=== PATIENT | male | born 1955 | race Caucasian/White ===

== ENCOUNTER 2019-03-02 17:54 | Emergency (ER) | payer OTHER, SELFPAY ==
[2019-03-02 17:55] VITALS: BP 147/94; PULSE 85; RESP 15; TEMP 36.6; O2SAT 96; BMI 30.1
[2019-03-02 18:15] VITALS: RESP 16
--- NOTE | 2019-03-02 18:18 | ED.VISSUMM ---
- ER Visit Summary Date of Service: 03/02/19 Chief Complaint: Abdominal pain History of Present Illness: The patient is a 63 M who presents the emergency department abdominal pain. Symptoms began on Wednesday and were fairly severe that day into Wednesday. He states that a little bit better today. He notes some decreased p.o. intake. He saw his PCP on Wednesday and yesterday had an outpatient CT. He states that he was called today and was told that he has pancreatitis and not to eat anything but to come to the emergency department. He denies any fevers. He states that looking back he notes some intermittent pains very similar to this over the past several months. He denies prior cholecystectomy or history of pancreatitis. He states that he very rarely has alcohol over the past several years. No fevers. No vomiting but nausea. He notes constipation. I was able to review the CT scan read. There is a possible pseudocyst. There is a lung nodule and changes consistent with pancreatitis. There was no noted gallstones or pericholecystic fluid. Physical Examination: Afebrile vital signs are stable Gen: Well-nourished well-developed Head: Normocephalic atraumatic Eyes: Perrl EOMI ENT: TMs clear no rhinorrhea moist mucous membranes Neck: Supple no lymphadenopathy no JVD nontender CVS: Regular rate rhythm no murmurs normal S1-S2 Respiratory: No distress clear to auscultation bilaterally chest nontender Abdomen: Soft mild tenderness to palpation in the epigastrium nondistended normal bowel sounds no masses Back: Nontender Extremity: Nontender no edema Skin: Normal color no rash Neuro: alert orientated ?3 CN II-XII intact normal strength sensation reflexes gait cerebellar Psych: Normal affect normal mood Test Results: White count 9. Lipase 592. Liver enzymes normal. Glucose 284. Emergency Department Course and Treatment: I was able to review the CT scan. Overall the patient feels better today than he has at any point this week. Think most likely given the patient states that he always has a degree of pain but it comes to be worse periodically that he has acute on chronic pancreatitis. Think is reasonable to discharge him home tonight as he is doing better and able to tolerate fluids. He declined morphine and Zofran here. He did receive a liter of fluids. I discussed with him about keeping to a liquid diet today and tomorrow. He states that he due to insurance reasons is interested in finding a new doctor. He states that he has been having to pay [facility] for his care as his insurance is not accepted at the clinic. Patient understands that he will need further work-up on this. If he was advised that there was a pulmonary nodule seen on his CT as well as the pancreatitis. Impression: 1. Acute on chronic pancreatitis This note was generated with [employer] dictation software. It may contain incorrect words, spelling, and punctuation that were not noted in review of the chart prior to signing ED Disposition - Plan for ED Patient: Disposition: Home or Assisted Living Instructions: Understanding Pancreatitis, PULMONARY NODULE, Solitary Referrals: Rigo Bergman MD [STAFF PHYSICIAN] - (call if you want to establish care)
[2019-03-02] MEDS: 0.9% Normal Saline 1,000 ML 1000 ML IV (18:38)
[2019-03-02 18:54] LABS: Absolute Lymphocyte Count 3.33 X10^3/uL (0.83-4.51); Absolute Neutrophil Count 5.6 X10^3/uL (2.0-7.7); Basophil# 0.05 X10^3/uL; Basophil% 0.5 % (0-1); Hematocrit 48.5 % (40-54); Hemoglobin 17.1 g/dL (13.0-16.5); Lymphocyte # 3.33 X10^3/ul (4.0); Lymphocyte % 33.7 % (19-41); Mean Corp Hgb Conc 35.3 g/dL (32-36); Mean Corpuscular Hgb 28.1 pg (27.0-32.0); Mean Corpuscular Volume 79.8 fL (80-94); Mean Platelet Vol. 10.1 fl (6.2-12.0); Monocyte# 0.76 X10^3/uL; Monocyte% 7.7 % (0-10); NRBC Flagged by Analyzer 0 % (0-5); Neutrophil # 5.57 X10^3/uL (2.7-7.7); Neutrophil % 56.5 % (47-70); Platelet Count 254 K/mm3 (150-450); RBC Distribution Width CV 12.3 % (11.6-14.6); RBC Distribution Width SD 34.8 fl (35.1-43.9); Red Blood Count 6.08 M/mm3 (4.6-6.2); White Blood Count 9.9 K/mm3 (4.4-11.0)
[2019-03-02 19:07] LABS: AST(SGOT) 13 U/L (15-37); Alanine Aminotransfer ALT/SGPT 30 U/L (16-61); Alkaline Phosphatase 91 U/L (45-117); Anion Gap 11 (5-15); BUN 22 mg/dL (7-18); BUN/Creat Ratio 20.4 RATIO (10-20); Bilirubin, Direct 0.19 mg/dL (0.00-0.30); Calcium,Total 9.4 mg/dL (8.5-10.1); Chloride 97 mmol/L (98-107); Creatinine, Serum 1.08 mg/dL (0.70-1.30); EST Glomerular Filtration Rate 74 mL/min (>60); Est Glom Filt Rate - Afr Amer 89 mL/min (>60); Estimated Creatinine Clearance 74.16 ml/min; Glucose 284 mg/dL (74-106); Lipase 592 U/L (73-393); Potassium 3.6 mmol/L (3.5-5.1); Sodium Level 135 mmol/L (136-145)
[2019-03-02 19:40] VITALS: BP 155/105; PULSE 88; RESP 16; O2SAT 96
== END 2019-03-02 19:41 | disposition home or self-care (01) ==
PROVIDERS: Emergency Provider Emergency Medicine; Family Provider Family Medicine; PCP Family Medicine
DX: K86.1 Other chronic pancreatitis (principal); K85.90 Acute pancreatitis without necrosis or infection, unspecified; K59.00 Constipation, unspecified; R91.1 Solitary pulmonary nodule
CPT/HCPCS: 80048; 80076; 83690; 85025; 96361; 96374; 96375; 99283; J7030; J2405

== ENCOUNTER → 2019-03-15 07:51 | Outpatient (CLI) | payer OTHER, SELFPAY ==
[2019-03-07 08:17] VITALS: BMI 29.5
[2019-03-07 12:47] VITALS: BMI 30.1
--- NOTE | 2019-03-15 07:57 | US_ITS ---
STUDY: ABDOMINAL ULTRASOUND - RIGHT UPPER QUADRANT REASON FOR VISIT: Male, 63 years old patient has a history of chronic pancreatitis. TECHNIQUE: Ultrasound evaluation of the right upper quadrant was performed with real-time and static jean-scale imaging. TECHNICAL QUALITY: Adequate. COMPARISON: None. FINDINGS: Liver: The liver is enlarged and measures 19 point cm. There is increased echogenicity consistent with fatty infiltration. The bile ducts are within normal limits. There is hepatic color flow. The direction of portal flow is hepatopetal. There is no demonstrated mass lesion. Gallbladder: Normal distended gallbladder. The gallbladder wall measures 2.4 mm. There is a negative sonographic Arceo''s sign. There is no pericholecystic fluid. There are no gallstones. Common Bile Duct (C.B.D.): The common bile duct measures 3.5 mm. Pancreas: Normal size of the head, body and tail of the pancreas. There is increased echogenicity of the pancreas. There is no demonstrated pancreatic mass or cyst. Right Kidney: Normal size of the right kidney. The right kidney measures 12.6 cm x 5.4 cm x 5.0 cm. Normal renal cortex. The right cortex measures 1.4 cm. There is no demonstrated renal mass or cyst. There is no right hydronephrosis. US/Abdomen Limited IMPRESSION: Hepatomegaly and fatty infiltration of the liver. Electronically Signed: Agnel Putnam, at 15:45 EST , Service support ,
== END ==
PROVIDERS: Family Provider Internal Medicine; PCP Internal Medicine; Referring Provider Internal Medicine; Visit Provider Internal Medicine
DX: K86.1 Other chronic pancreatitis (principal)
CPT/HCPCS: 76705

== ENCOUNTER → 2019-03-21 06:53 | Outpatient (CLI) | payer OTHER, SELFPAY ==
[2019-03-07 12:47] VITALS: BMI 30.1
--- NOTE | 2019-03-21 06:54 | CT_ITS ---
STUDY: CT ABDOMEN AND PELVIS WITH CONTRAST REASON FOR EXAM: Male, 63 years old. Chronic pancreatitis RADIATION DOSAGE (If Supplied By Facility): CTDIvol = ( 13.26 ) mGy, DLP = ( 1043.35 ) mGycm TECHNIQUE: Transaxial images were obtained from the dome of the diaphragm to the symphysis pubis with oral contrast. 100ML ISOVUE 370 was administered. Sagittal and coronal images were reconstructed. Individualized dose optimization techniques were used for this CT. COMPARISON: None. FINDINGS: There is a 3 mm nodule in the right lung base on axial image 2. The visualized portions of the heart are within normal limits. Normal liver. Normal gallbladder and extrahepatic biliary system. Normal spleen. There is an oval-shaped low-density lesion in the posterior pancreatic head/uncinate process on axial image 47 of series 2 measuring 1.1 x 1.6 cm. Normal bilateral adrenal glands. Normal right kidney. Normal left kidney. Normal visualized stomach. Normal small intestine. Normal colon. The appendix is visualized and appears normal. There is diffuse atherosclerotic calcification of the abdominal aorta, without a demonstrated aneurysm. Normal inferior vena cava. Normal retroperitoneum. Normal urinary bladder. There is a small umbilical hernia containing fat. Spondylosis of the thoracolumbar spine. Sclerotic lesion of the superior torsion of L5 vertebral body likely represents a bone island or degenerative sequela. CT/Abdomen/Pelvis WITH Contrast IMPRESSION: 1. No acute inflammatory process. 2. 1.1 x 1.6 cm low-density lesion in the posterior pancreatic head/uncinate process. Additional evaluation with MRI (pancreatic protocol) recommended. 3. 3 mm noncalcified nodule in the right lung base. Follow-up according to Fleischner Society recommendations. Electronically Signed: Peter Stern MD (Brooks) at 15:35 EST , Service support ,
== END ==
PROVIDERS: Family Provider Internal Medicine; PCP Internal Medicine; Referring Provider Nurse Practitioner Family; Visit Provider Nurse Practitioner Family
DX: K86.1 Other chronic pancreatitis (principal)
CPT/HCPCS: 74177; Q9967

== ENCOUNTER → 2019-04-10 06:26 | Outpatient (CLI) | payer OTHER, SELFPAY ==
[2019-03-07 12:47] VITALS: BMI 30.1
--- NOTE | 2019-04-10 06:27 | MRI_ITS ---
STUDY: MRI ABDOMEN WITH AND WITHOUT CONTRAST REASON FOR EXAM: Male, 64 years old. panc mass, follow up to u/s and CT, prev left sided abd pain TECHNIQUE: Standardized fat and water weighted pulse sequences were obtained in all 3 orthogonal planes post contrast administration. Dotarem IV 19ml was administered for the contrast portion of the examination. COMPARISON: CT 03/21/2019 FINDINGS: The visualized lung bases are unremarkable. The visualized portions of the heart are within normal limits. Normal liver. Normal gallbladder and extrahepatic biliary system. Normal spleen. 1.5 cm oval mass of water intensity without contrast enhancement within the uncinate process of the pancreas corresponding to the mass seen on CT consistent with a pancreatic cyst. Normal bilateral adrenal glands. Normal right kidney. Normal left kidney. Normal visualized stomach. Normal small intestine. Normal colon. There is non-visualization of the appendix. Normal abdominal aorta. Normal inferior vena cava. Normal retroperitoneum. Normal abdominal wall. Normal osseous structures. MRI/MRI Abd WITH and W/O Contrast IMPRESSION: MRI confirms a 1.5 cm cyst within the uncinate process of the pancreas. Electronically Signed: Rafi Panchal MD at 11:27 EST Tel , Service support ,
--- NOTE | 2019-04-10 06:49 | RAD_ITS ---
STUDY: X-RAY - ORBITS REASON FOR EXAM: Male, 64 years old. PRE MRI -- HX METAL TO EYE TECHNIQUE: 2 view(s) of the orbits were obtained. COMPARISON: None. FINDINGS: Normal bilateral orbits without a metallic orbital foreign body. Normal visualized facial bones. Normal paranasal sinuses. The soft tissue structures are unremarkable. RAD/Orbits for Foreign Body IMPRESSION: No demonstrated metallic orbital foreign body. The patient is cleared for an MRI examination. Electronically Signed: Jazmine Prasad MD at 7:12 EST , Service support ,
== END ==
PROVIDERS: Family Provider Internal Medicine; PCP Internal Medicine; Referring Provider Internal Medicine; Visit Provider Internal Medicine
DX: K86.89 Other specified diseases of pancreas (principal)
CPT/HCPCS: 70030; 74183; A9575; A4216

== ENCOUNTER → 2019-05-23 09:49 | Outpatient (CLI) | payer OTHER, SELFPAY ==
[2019-05-23 09:26] VITALS: BMI 30.1
[2019-05-23 12:54] LABS: Microalbumin,Random Urine 86.3 mg/L (NO RANGE EST.); Microalbumin:Creatinine Ratio 42.7 mg/g CRE (<30 mg/g CRE)
[2019-05-28 12:06] LABS: Testosterone, Free 6.54 ng/dL (5.00-21.00)
[2019-05-28 16:19] LABS: Testosterone, % Free 4.51 % (1.50-4.20); Testosterone, Total 145 ng/dL (264-916)
== END ==
PROVIDERS: PCP Internal Medicine; Visit Provider Internal Medicine
DX: E11.9 Type 2 diabetes mellitus without complications (principal); N52.9 Male erectile dysfunction, unspecified
CPT/HCPCS: 36415; 82043; 82570; 84402; 84403

== ENCOUNTER → 2019-05-31 09:02 | Outpatient (CLI) | payer OTHER, SELFPAY ==
[2019-05-23 09:26] VITALS: BMI 30.1
--- NOTE | 2019-05-31 09:03 | EKG12_ITS ---
Test Reason : Blood Pressure : / mmHG Vent. Rate : 094 BPM Atrial Rate : 094 BPM P-R Int : 130 ms QRS Dur : 114 ms QT Int : 374 ms P-R-T Axes : 047 -61 070 degrees QTc Int : 467 ms Normal sinus rhythm Left anterior fascicular block Minimal voltage criteria for LVH, may be normal variant Abnormal ECG Confirmed by JAYLENE ELIZONDO ([id number]), dictionary editor HAI BARNES ([id number]) on 05/31/2019 3:07:52 PM Referred By: Rigo Bergman Confirmed By:JAYLENE ELIZONDO
== END ==
PROVIDERS: PCP Internal Medicine; Referring Provider Internal Medicine; Visit Provider Internal Medicine
DX: I10 Essential (primary) hypertension (principal); E11.9 Type 2 diabetes mellitus without complications
CPT/HCPCS: 93005

== ENCOUNTER → 2019-09-18 09:04 | Outpatient (CLI) | payer OTHER, SELFPAY ==
[2019-09-18 08:30] VITALS: BMI 29.9
[2019-09-18 13:01] LABS: Anion Gap 7 (5-15); BUN 20 mg/dL (7-18); BUN/Creat Ratio 23.7 RATIO (10-20); Calcium,Total 9.6 mg/dL (8.5-10.1); Chloride 102 mmol/L (98-107); Creatinine, Serum 0.84 mg/dL (0.70-1.30); EST Glomerular Filtration Rate 98 mL/min (>60); Est Glom Filt Rate - Afr Amer 118 mL/min (>60); Glucose 122 mg/dL (74-106); Potassium 4.3 mmol/L (3.5-5.1); Sodium Level 139 mmol/L (136-145)
== END ==
PROVIDERS: PCP Internal Medicine; Referring Provider Internal Medicine; Visit Provider Internal Medicine
DX: I10 Essential (primary) hypertension (principal)
CPT/HCPCS: 36415; 80048

== ENCOUNTER 2019-10-10 07:54 | Day surgery (SDC) | payer OTHER, SELFPAY ==
[2019-09-18 08:30] VITALS: BMI 29.9
[2019-10-10 08:24] VITALS: BP 181/101; PULSE 98; RESP 16; TEMP 36.5; O2SAT 98; BMI 29.2
[2019-10-10 08:40] LABS: Bedside Glucose 142 mg/dL (70-110)
[2019-10-10] MEDS: Lactated Ringers 1,000 ML 100 ML IV (08:52)
--- NOTE | 2019-10-10 08:53 | HP.PCM_ITS ---
History of Present Illness Date of Admission: 10/10/19 The patient is a 64 year old M here for screening colonoscopy. The patient has never had a colonoscopy in the past. He is not having any abdominal pain or blood in his stool. He has no family history of colon cancer. He is on no blood thinners. Past Medical/Surgical History - Planned Operation Planned Operative Procedure/s: cscope open access Date of Operative Procedure: 10/10/19 Permit Signed: No S.O.S: No Is This Patient Having a Total Joint: No - Previous Hospitalizations/Surgeries HX Hospitalizations: No HX of Surgeries: knee scope Any Problems With Anesthesia: No You/Your Family Experience Fever (Hyperthermia) With Anes: No Cholinesterase deficiency: No - Cardiovascular Hx Chest Pain within Last 2 months: No Hx of Irregular Heartbeat and/or Afib: No Hx Heart Attack: No Hx Congestive Heart Failure: No Hx Rheumatic Fever: No Hx Hypertension: Yes - controlled with meds Hx Internal Defibrillator: No Hx Pacemaker: No Hx Cardiac Catheterization: No Hx Cardiac Surgery/Stents/Etc.: No Hx Stress Test: No HX Edema: No Hx Pain in Legs when Walking/Leg Cramps: No - Respiratory Chronic Cough: No HX of Shortness of Breath: No Hoarseness: No Hx Chronic Obstructive Pulmonary Disease (COPD): No Hx Asthma: No Hx Emphysema: No Hx Sleep Apnea: No Hx Oxygen Use at Home: No Hx Respiratory Tract Infection/Cold (presently): No Do You Snore Loudly (louder than talking or can be heard): Yes Do You Often Feel Tired/ Fatigued/ Sleepy Dring Daytime?: Yes Has Anyone Observed You Stop Breathing During Sleep?: No Result (for STOP score): Positive Hx Smoking: Yes - quit 20 yrs ago Smoking Status: Former smoker - Gastrointestinal Hx Gastroesophageal Reflux: No Hx Gastrointestinal Disorders: No Hx Gastrointestinal Bleed: No Hx Ulcer: No Hx Hiatal Hernia: No Difficulty Chewing/Swallowing: No Recent Onset of Swallowing Problems: No Special diet followed at home: Yes - ada Hx Unplanned Weight Loss of 20#: No HX Unplanned Weight Gain of 20#: No - Neurological Hx Seizures: No HX Syncope/Blackout Spells/Unconsciousness: No Hx CVA/Stroke: No Hx Transient Ischemic Attacks (TIA): No Hx Multiple Sclerosis: No Hx Parkinson's Disease: No Hx Head/Neck Injury: No Hx Headaches: No Hx Back Injury/Pain: No Recent Onset of Speech Difficulty: No Restless Legs: Yes Does patient have nerve stimulator: No Patient instructed to have device shut off: No Rep notified?: No - Blood Disorder Hx Leukemia: No Bleeding Tendencies: No Hx Deep Vein Thrombosis: No Hx High Cholesterol: Yes Blood Transmitted Disease: No Hx Hepatitis: No Hx Cirrhosis: No Hx Anemia: No Hx Blood Disorders: No - Genitourinary Hx Renal Disease: No - Musculoskeletal Hx Arthritis: No Hx Rheumatoid Arthritis: No Hx Gout: No Recent Onset of an Orthopedic Problem: No - Endocrine Hx Diabetes: Yes Insulin: No Thyroid Disease: No Hx Steroid Therapy: No - Psycho/Social Hx Substance Use: Yes - marijuna in the past Hx Alcohol Use: Yes - in the past Hx Anxiety: No Hx Depression: Yes - at times Mental Illness: No Hx Dementia: No - Miscellaneous Hx Cancer: No Recent Exposure to Contagious Disease: No Active MRSA: No Hx of C-Diff: No Any Loose Teeth: No Allergies Penicillins [PCN] Allergy (Verified 10/10/19 08:23) Other - Discharge Is Pt Admitted From a [facility], or a Correction: No After D/C, Where Do you Plan to Go: Return Home - From the PAT History Number of Risk Factors: 4 - Physical Exam Vitals/I&O's: Vital Signs Temp Pulse Resp BP Pulse Ox 97.7 F L 98 16 181/101 H 98 10/10/19 08:24 10/10/19 08:24 10/10/19 08:24 10/10/19 08:24 10/10/19 08:24 Oxygen Delivery Method Room Air Weight: 215 lb 9.793 oz Body Mass Index (BMI) 29.2 General: Alert, Oriented x3 Neck: No JVD Lungs: Normal air movement Cardiovascular: Regular rate, Regular Rhythm Abdomen: Soft, Non Tender, Non-Distended Laboratory Results 10/10/19 08:32: POC Glucose 142 H Current Medications Lactated Ringer's () 1,000 mls @ 100 mls/hr IV .Q10H ESE Last Admin: 10/10/19 08:52 Dose: 100 mls/hr Documented by: Assessment/Plan All Active Problems (Last Reviewed 07/13/19 @ 14:[address] Yousuf Mares MD) Hearing problem (Acute) Pancreatitis (Acute) 64-year-old male for screening colonoscopy I explained endoscopy in detail to the patient. I explained the risks including but not limited to stroke or heart attack with anesthesia, perforation of the GI tract, bleeding, infection. I explained that any of these could necessitate further emergency surgery. The patient understands and all questions were answered sufficiently. The patient wishes to proceed with procedure. We discussed the current risks associated with COVID-19. While it is understood that there is a community spread of COVID-19, the risk of eric COVID-19 while at [facility] ([facility]) is very low; however, the risk cannot be completely mitigated because of the community spread of the disease. We discussed in detail the risk of exposure to and/or potential harm posed by the COVID-19 virus with having a surgery/procedure at this time versus the risk of delaying the surgery/procedure. It is not possible to know either the risk of delaying the surgery or procedure or chance of getting an infection with perfect accuracy, but a joint decision was made to proceed at this time with the scheduled surgery/procedure as indicated on the consent form. Patient was notified that we will need to comply with any screening or testing [facility] wishes to perform or that surgery may be delayed for any positive results. Eric Caldera MD Pager: [facility] [address] [place] [address] [address] [place] [phone] Office: Surgery Risks - Colonoscopy Risks Include but are not Limited To: Risks include but are not limited to: Bleeding, perforation requiring further surgery, inability to complete colonoscopy requiring barium enema.
--- NOTE | 2019-10-10 09:00 | COLBX_PTH ---
PATIENT: ALEX WICK LOC: [facility] U#:[id number] AGE/SX: 64/M ROOM: RE10/10/[address]: Dr. Eric Caldera MD : 1955 BED: DIS: 10/10/2019 SPEC #: [id number] RECD: 10/10/19 13:47 STATUS: CHAY CRYSTAL #: [id number] RYLEE: 10/10/19 09:[address]: Eric Caldera DEPT: SURGICAL PATHOLOGY RECD BY: Oseas Marina ENTERED: 10/11/19 09:21 SP TYPE: COLON BX OTHR DR: Dr. Rigo Bergman MD Tissues: Sigmoid colon biopsy Procedures: Surgery Specimen Level IV HEADER OPERATION: Colonoscopy - open access (MAC) PRE-OP DIAGNOSIS: Screening TISSUE SUBMITTED: Sigmoid polyp MICROSCOPIC DIAGNOSIS Sigmoid colon polyp, biopsy: Hyperplastic polyp. AM:deedee 10/12/19 MICROSCOPIC DESCRIPTION Slides are reviewed. GROSS DESCRIPTION Received in fixative is one container labeled with the patient's name and designated sigmoid polyp. The specimen consists of a piece of glasgow-pink polyp measuring 0.5 x 0.5 x 0.3 cm. Multiple fragments of fecal material are also noted. The entire specimen is submitted in one cassette. / SJ:rg 10/11/19 TC:5 CPT: 09715
[2019-10-10 09:35] VITALS: BP 116/80; BP 181/101; PULSE 84; RESP 18; TEMP 36.5; O2SAT 97
--- NOTE | 2019-10-10 09:35 | OP.COLON_ITS ---
Patient Name: Chip Spears Procedure Date: 10/10/2019 8:57 AM Date of : 1955 Age: 64 Procedure: Colonoscopy Indications: Screening for colorectal malignant neoplasm Providers: Eric Caldera MD Referring MD: Rigo Bergman MD Medicines: Monitored Anesthesia Care Patient Profile: This is a 64 year old male. Refer to note in patient chart for documentation of history and physical. Last Colonoscopy: none. The patient's first colonoscopy is today. Complications: No immediate complications. Procedure: Pre-Anesthesia Assessment: - Prior to the procedure, a History and Physical was performed, and patient medications and allergies were reviewed. The patient's tolerance of previous anesthesia was also reviewed. The risks and benefits of the procedure and the sedation options and risks were discussed with the patient. All questions were answered, and informed consent was obtained. Prior Anticoagulants: The patient has taken no previous anticoagulant or antiplatelet agents. After reviewing the risks and benefits, the patient was deemed in satisfactory condition to undergo the procedure. After I obtained informed consent, the scope was passed under direct vision. Throughout the procedure, the patient's blood pressure, pulse, and oxygen saturations were monitored continuously. The pediatric colonoscope was introduced through the anus and advanced to the cecum, identified by appendiceal orifice and ileocecal valve. The colonoscopy was performed without difficulty. The patient tolerated the procedure well. The quality of the bowel preparation was good. Scope In: 9:17:55 AM Scope Withdrawal Time 0 hours 9 minutes 3 seconds Scope Out: 9:31:42 AM Total Procedure Duration Time 0 hours 13 minutes 47 seconds Findings: A polyp was found in the sigmoid colon. The polyp was sessile. The polyp was removed with a hot snare. Resection and retrieval were complete. Non-bleeding internal hemorrhoids were found during retroflexion. The hemorrhoids were medium-sized. The exam was otherwise without abnormality on direct and retroflexion views. Impression: - One polyp in the sigmoid colon, removed with a hot snare. Resected and retrieved. - Non-bleeding internal hemorrhoids. - The examination was otherwise normal on direct and retroflexion views. Recommendation: - Discharge patient to home. - Resume previous diet. - Continue present medications. - Await pathology results. - Repeat colonoscopy for surveillance based on pathology results. Procedure Code(s): --- Professional --- 79553, Colonoscopy, flexible; with removal of tumor(s), polyp(s), or other lesion(s) by snare technique Diagnosis Code(s): --- Professional --- Z12.11, Encounter for screening for malignant neoplasm of colon D12.5, Benign neoplasm of sigmoid colon K64.8, Other hemorrhoids CPT copyright 2017 [employer]. All rights reserved. The codes documented in this report are preliminary and upon lead driver review may be revised to meet current compliance requirements. Eric Caldera MD 10/10/2019 9:35:31 AM This report has been signed electronically. Number of Addenda: 0 Note Initiated On: 10/10/2019 8:57 AM
--- NOTE | 2019-10-10 09:36 | OP.CCLET_ITS ---
10/10/2019 Rigo Bergman MD [address] [place] [address] [place] [address] Re : Colonoscopy procedure for Chip Spears Dear Dr. Bergman This procedure was performed on Thursday, October 10, 2019. My impressions and recommendations are as follows: Impressions : - One polyp in the sigmoid colon, removed with a hot snare. Resected and retrieved. - Non-bleeding internal hemorrhoids. - The examination was otherwise normal on direct and retroflexion views. Recommendations : - Discharge patient to home. - Resume previous diet. - Continue present medications. - Await pathology results. - Repeat colonoscopy for surveillance based on pathology results. My findings are described in the full procedure note, which is enclosed. If I can be of further assistance, please feel free to contact me at Doctor phone number(s): , Work: . Sincerely, Eric Caldera MD 10/10/2019 9:35:31 AM This report has been signed electronically.
[2019-10-10 09:40] VITALS: BP 127/76; BP 181/101; PULSE 83; RESP 18; O2SAT 96
[2019-10-10 09:45] VITALS: BP 127/78; BP 181/101; PULSE 81; RESP 18; O2SAT 97
[2019-10-10 09:51] VITALS: BP 144/78; BP 181/101; PULSE 80; RESP 18; TEMP 36.4; O2SAT 97
[2019-10-10 10:17] VITALS: BP 142/77; BP 181/101; PULSE 85; RESP 16; TEMP 36.8; O2SAT 98
== END 2019-10-10 10:21 | disposition home or self-care (01) ==
LOC: EN 07:56 → AC 07:57
PROVIDERS: Anesthesiology; PCP Internal Medicine; Referring Provider Internal Medicine; Visit Provider Surgery
PROC: 0DJD8ZZ Inspection of Lower Intestinal Tract, Via Natural or Artificial Opening Endoscopic (ICD-10-PCS; CPT 45378; principal; 2019-10-10 08:55)
DX: Z12.11 Encounter for screening for malignant neoplasm of colon (principal); D12.5 Benign neoplasm of sigmoid colon; K64.8 Other hemorrhoids; E11.9 Type 2 diabetes mellitus without complications; E78.00 Pure hypercholesterolemia, unspecified; F32.9 Major depressive disorder, single episode, unspecified; I10 Essential (primary) hypertension; Z87.891 Personal history of nicotine dependence; Z88.0 Allergy status to penicillin
CPT/HCPCS: 45385; 82962; 87635; 88305; G2023; J7120; U0003

== ENCOUNTER → 2020-04-25 11:33 | Outpatient (CLI) | payer OTHER, SELFPAY ==
[2020-04-25 09:56] VITALS: BMI 30.9
[2020-04-25 11:41] LABS: Bacteria 0 SEEN /hpf (None Seen); Mucous, Urine 0 SEEN /hpf (<or=2+); Red Blood Cells-Urine 0 SEEN /hpf (0-5); Squamous Epithelial Cells - UA 0 SEEN /hpf (0-5); White Blood Cells 0 SEEN /hpf (0-5)
[2020-04-25 15:06] LABS: Color, Urine Yellow (Yellow); Glucose, Dipstick Normal (Normal); Ketone-Dipstick Negative (Negative); Leukocyte Esterase-Dipstick Negative /ul (Negative); Nitrite-Dipstick Negative (Negative); Occult Blood-Urine Negative /ul (Negative); Protein-Dipstick Negative (Negative); Urine Bilirubin Dipstick Negative (Negative); Urine Clarity Clear (Clear); Urine Urobilinogen Normal (Normal)
[2020-04-25 15:07] LABS: Absolute Lymphocyte Count 2.92 X10^3/uL (0.83-4.51); Absolute Neutrophil Count 6.8 X10^3/uL (2.0-7.7); Basophil# 0.06 X10^3/uL; Basophil% 0.6 % (0-1); Eosinophil# 0.14 X10^3/uL; Eosinophils% 1.3 % (0-5); Hematocrit 47.8 % (40-54); Hemoglobin 15.7 g/dL (13.0-16.5); Lymphocyte # 2.92 X10^3/ul (4.0); Lymphocyte % 27.1 % (19-41); Mean Corp Hgb Conc 32.8 g/dL (32-36); Mean Corpuscular Hgb 27.6 pg (27.0-32.0); Mean Platelet Vol. 10.6 fl (6.2-12.0); Monocyte% 7.4 % (0-10); NRBC Flagged by Analyzer 0 % (0-5); Neutrophil # 6.82 X10^3/uL (2.7-7.7); Neutrophil % 63.1 % (47-70); Platelet Count 248 K/mm3 (150-450); RBC Distribution Width CV 12.4 % (11.6-14.6); RBC Distribution Width SD 37.6 fl (35.1-43.9); Red Blood Count 5.69 M/mm3 (4.6-6.2); White Blood Count 10.8 K/mm3 (4.4-11.0)
[2020-04-25 15:22] LABS: Hemoglobin A1c 7.9 % (3.8-5.6)
[2020-04-25 15:27] LABS: ALB/GLOB Ratio 1.1 RATIO (0.9-2.4); AST(SGOT) 49 U/L (15-37); Alanine Aminotransfer ALT/SGPT 77 U/L (16-61); Albumin, Serum 4.3 g/dL (3.2-5.0); Alkaline Phosphatase 56 U/L (45-117); Anion Gap 8 (5-15); BUN 20 mg/dL (7-18); BUN/Creat Ratio 20.3 RATIO (10-20); Calcium,Total 9.4 mg/dL (8.5-10.1); Chloride 101 mmol/L (98-107); Creatinine, Serum 0.98 mg/dL (0.70-1.30); EST Glomerular Filtration Rate 82 mL/min (>60); Est Glom Filt Rate - Afr Amer 99 mL/min (>60); Globulin 3.8 g/dL (2.2-4.2); Glucose 149 mg/dL (74-106); Potassium 3.9 mmol/L (3.5-5.1); Protein, Total 8.1 g/dL (6.4-8.2); Sodium Level 136 mmol/L (136-145)
[2020-04-25 15:32] LABS: Microalbumin,Random Urine 44.5 mg/L (NO RANGE EST.); Microalbumin:Creatinine Ratio 30.1 mg/g CRE (<30 mg/g CRE)
[2020-04-25 15:33] LABS: Cholesterol 272 mg/dL (200); High Density Lipoprotein 46 mg/dL; Triglycerides 287 mg/dL; Very Low Density Lipoprotein 57 mg/dL (5-40)
[2020-04-26 10:58] LABS: GGTP 69 U/L (15-85)
== END ==
PROVIDERS: PCP Internal Medicine; Referring Provider Nurse Practitioner Family; Visit Provider Nurse Practitioner Family
DX: E11.9 Type 2 diabetes mellitus without complications (principal); I10 Essential (primary) hypertension; R47.01 Aphasia
CPT/HCPCS: 36415; 80053; 80061; 81001; 82043; 82570; 82977; 83036; 84443; 85025

== ENCOUNTER → 2020-05-02 14:05 | Outpatient (CLI) | payer OTHER, SELFPAY ==
[2020-05-02 13:11] VITALS: BMI 32.5
[2020-05-02 15:36] LABS: Vitamin B12 572 pg/mL (211-911)
[2020-05-10 05:06] LABS: Free Kappa Light Chains 13.5 mg/L (3.3-19.4); Free Lambda Light Chains 12.9 mg/L (5.7-26.3)
[2020-05-10 12:41] LABS: Vitamin B1, Thiamine 157.1 nmol/L (66.5-200.0)
== END ==
PROVIDERS: PCP Internal Medicine; Referring Provider Psychiatry & Neurology Neurology; Visit Provider Psychiatry & Neurology Neurology
DX: G62.9 Polyneuropathy, unspecified (principal)
CPT/HCPCS: 36415; 82607; 82746; 83883; 84425

== ENCOUNTER → 2020-05-03 07:50 | Outpatient (CLI) | payer OTHER, SELFPAY ==
[2020-04-25 09:56] VITALS: BMI 30.9
[2020-05-02 13:11] VITALS: BMI 32.5
--- NOTE | 2020-05-03 07:53 | MRI_ITS ---
STUDY: MRA NECK WITH AND WITHOUT CONTRAST REASON FOR EXAM: Male, 65 years old patient with aphasia for two weeks TECHNIQUE: 3-D [id number] (TOF) imaging was performed in an 1.5 T MRI scanner. 20 ml of IV Dotarem was administered for the contrast enhanced images. Patient motion limits the quality of the unenhanced images. COMPARISON: None. FINDINGS: RIGHT CAROTID ARTERIES: Normal right common carotid artery (CCA). There is mild atherosclerotic plaque formation with minimal narrowing of the right carotid bulb. There is mild atherosclerotic plaque formation of the origin of the right internal carotid artery with less than 50% cross sectional diameter stenosis. Normal visualized cervical portion of the right internal carotid artery. Normal origin of the right external carotid artery (ECA). LEFT CAROTID ARTERIES: Normal left common carotid artery (CCA). Normal left common carotid bulb. There is moderate atherosclerotic plaque formation of the origin of the left internal carotid artery with an estimated stenosis of 50-69% stenosis. There is complete thrombosis of the left internal carotid artery just beyond its origin. Normal origin of the left external carotid artery (ECA). VERTEBRAL ARTERIES: Normal antegrade flow within the bilateral vertebral artery without a hemodynamically significant stenosis. MRI/MRA Neck WITH and W/O Contrast IMPRESSION: 1. 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 2. Nonhemodynamically significant stenosis of the right internal carotid artery. Electronically Signed: Zayda Lima MD at 9:18 EST , Service support ,
== END ==
PROVIDERS: PCP Internal Medicine; Referring Provider Nurse Practitioner Family; Visit Provider Nurse Practitioner Family
DX: R47.01 Aphasia (principal); I10 Essential (primary) hypertension; E11.9 Type 2 diabetes mellitus without complications
CPT/HCPCS: 70549; A9575

== ENCOUNTER → 2020-05-07 13:46 | Outpatient (CLI) | payer OTHER, SELFPAY ==
[2020-05-02 13:11] VITALS: BMI 32.5
--- NOTE | 2020-05-07 13:48 | MRI_ITS ---
We are attempting to reach an attending provider to discuss findings. An addendum with communication details will be sent when the communication is complete. STUDY: MRI BRAIN WITH AND WITHOUT CONTRAST REASON FOR EXAM: Male, 65 years old. subacute ischemic stroke, loss of speech x 3 weeks TECHNIQUE: Standardized multiplanar fat and water weighted pulse sequences were obtained. IV dotarem 20 ml was administered for the contrast portion of the examination. COMPARISON: None. FINDINGS: Normal size of the ventricles and extra-axial spaces for the patient''s age. Multiple hyperintensities of the peroneal white matter the left parietal lobe demonstrate restricted diffusion consistent with subacute infarcts. There are areas of T1 and T2 hyperintensity within the head of the left caudate nucleus and the anterior aspect of the left putamen with faint hemosiderin staining consistent with prior hemorrhage. Normal thalami. There is no extra-axial fluid accumulation. Normal flow voids within the major intracranial circulation suggesting patency by spin echo criteria. Normal venous enhancement. There is no enhancing intra-axial or extra-axial abnormality. Normal sella turcica, pituitary gland, infundibular stalk, optic chiasm and hypothalamus. Normal tectal plate and pineal gland. Normal midbrain, jami and medulla. Normal cerebellum. Normal basal cisterns. Normal bilateral temporal bones. Normal bilateral internal auditory canals. No demonstrated orbital abnormality, within the constraints of a routine brain study. Air-fluid levels in the maxillary sinuses bilaterally consistent with acute sinusitis. Normal calvarium and skull base. Normal visualized soft tissue structures. Normal visualized upper cervical spine. MRI/Brain W/WO Contrast IMPRESSION: 1. Multiple subacute white matter infarcts of the periapical white matter of the left parietal lobe. 2. Late subacute hemorrhage within the head of the left caudate nucleus and the anterior aspect the left putamen. Electronically Signed: Rafi Panchal MD at 16:09 EST Tel , Service support ,
== END ==
PROVIDERS: PCP Internal Medicine; Referring Provider Psychiatry & Neurology Neurology; Visit Provider Psychiatry & Neurology Neurology
DX: I63.512 Cerebral infarction due to unspecified occlusion or stenosis of left middle cerebral artery (principal)
CPT/HCPCS: 70553; A9575

== ENCOUNTER → 2020-05-13 07:57 | Outpatient (CLI) | payer OTHER, SELFPAY ==
[2020-05-02 13:11] VITALS: BMI 32.5
--- NOTE | 2020-05-13 07:59 | MRI_ITS ---
STUDY: MRA OF THE HEAD WITHOUT CONTRAST REASON FOR EXAM: Male, 65 years old. SLURRED SPEECH, F/U TO OTHER ABNORMAL IMAGING TECHNIQUE: 3-D [id number] (TOF) imaging was performed with MIPs. The study was performed unenhanced. COMPARISON: None. FINDINGS: Normal bilateral petrous carotid arteries. Normal right cavernous carotid artery with a normal supraclinoid bifurcation. Normal left cavernous carotid artery with a normal supraclinoid bifurcation. Normal right A1 segments of the anterior cerebral artery. Normal left A1 segments of the anterior cerebral artery. Normal intact anterior communicating artery (ACOM). Normal bilateral A2 segments of the anterior cerebral arteries. Normal right M1 and M2 segments of the middle cerebral arteries, with a normal M1 bifurcation. Occluded proximal M1 segment the left middle cerebral artery with nonvisualization of the remainder the left middle cerebral artery. Normal right posterior communicating artery (PCOM). There is a persistent origin of the left posterior cerebral artery with absence of the P1 segment of the left posterior cerebral artery. Normal bilateral vertebral arteries. Normal basilar artery with a normal basilar bifurcation. The visualized bilateral superior cerebellar (SCA) arteries are normal. Normal bilateral P1, P2 and visualized P3 segments of the posterior cerebral arteries. There is no demonstrated aneurysm of the [place]. There is no major vessel occlusion or hemodynamically significant stenosis. There is no demonstrated abnormality of the visualized brain. MRI/MRA Head ONLY without Contrast IMPRESSION: 1. Occluded left middle cerebral artery. 2. Persistent origin of the left posterior cerebral artery with an occluded or markedly hypoplastic P1 segment the left posterior cerebral artery. Electronically Signed: Rafi Panchal MD at 17:32 EST Tel , Service support ,
--- NOTE | 2020-05-13 08:57 | EKG12_ITS ---
Test Reason : STROKE Blood Pressure : / mmHG Vent. Rate : 093 BPM Atrial Rate : 093 BPM P-R Int : 162 ms QRS Dur : 112 ms QT Int : 368 ms P-R-T Axes : 063 -68 066 degrees QTc Int : 457 ms Normal sinus rhythm Left axis deviation Inferior infarct , age undetermined Anterolateral infarct , age undetermined Abnormal ECG Confirmed by CAROLINE MELENDEZ, ANNALISE ([id number]), general expeditor AGGIE CASTANEDA ([id number]) on 05/13/2020 2:23:18 PM Referred By: Ace Posada Confirmed By:ANNALISE VELAZQUEZ MD
--- NOTE | 2020-05-13 09:28 | CDU_ITS ---
Reason For Study: Complete Lt carotid occlusion per MRA, left ischemic stroke Rt. Velocities/BP Lt. Velocities/BP Prox CCA 78.6/31.7 cm/sec. Prox CCA 77.3/15.2 cm/sec. Mid CCA 89.1/29.1 cm/sec. Mid CCA 78.3/13.5 cm/sec. Dist CCA 68.2/22.6 cm/sec. Dist CCA 73.9/15.7 cm/sec. Prox ICA 108.3/31.6 cm/sec. Prox ICA 57.5/13.5 cm/sec. Mid ICA 86.4/40.7 cm/sec. Mid ICA 457.3/163.2 cm/sec. Dist ICA 91.9/48 cm/sec. Dist ICA 213.2/52.6 cm/sec. Rt. ICA/CCA = 1.38. Lt. ICA/CCA = 5.92. Prox ECA 93/14.7 cm/sec. Prox ECA 128.4/17 cm/sec. Rt. Vert. 68.1/12.6 cm/sec. Lt. Vert. 44.3/13.5 cm/sec. Right Extracranial There is homogeneous, smooth atherosclerotic plaque noted in the right common carotid artery. There is heterogeneous, irregular atherosclerotic plaque noted in the right internal carotid artery. There is homogeneous, irregular atherosclerotic plaque noted in the right external carotid artery. Antegrade flow is noted in the right vertebral artery. Left Extracranial There is homogeneous, smooth atherosclerotic plaque noted in the left common carotid artery. There is heterogeneous, irregular atherosclerotic plaque noted in the left internal carotid artery. There is heterogeneous, irregular atherosclerotic plaque noted in the left external carotid artery. Antegrade flow is noted in the left vertebral artery. Procedure Carotid Duplex 43596. This is a Carotid Duplex examination using B-mode, color flow and specral Doppler. Prelim to [facility]. Exam performed in department. Interpretation Summary Minimal smooth calcific plaque distal right common carotid artery Calcific plaque with shadowing at the proximal right internal carotid artery with less than 50% stenosis <50% stenosis right external carotid Irregular calcific plaque of the proximal left internal and external carotid artery >70% stenosis left internal carotid <50% stenosis left external carotid Patent and antegrade vertebral arteries bilaterally Ordering Physician: Ace Posada Referring Physician: Rigo Bergman Performed By: Yael Vazquez RVT
== END ==
PROVIDERS: PCP Internal Medicine; Referring Provider Psychiatry & Neurology Neurology; Visit Provider Psychiatry & Neurology Neurology
DX: I63.9 Cerebral infarction, unspecified (principal); I65.22 Occlusion and stenosis of left carotid artery
CPT/HCPCS: 70544; 93005; 93880

== ENCOUNTER → 2020-05-14 11:42 | Outpatient (CLI) | payer OTHER, SELFPAY ==
[2020-05-14 10:47] VITALS: BMI 32.4
[2020-05-14 11:31] VITALS: BMI 32.4
[2020-05-14 12:04] LABS: Hematocrit 42.3 % (40-54); Mean Corp Hgb Conc 35.5 g/dL (32-36); Mean Corpuscular Volume 81.7 fL (80-94); Mean Platelet Vol. 10.2 fl (6.2-12.0); Platelet Count 243 K/mm3 (150-450); RBC Distribution Width SD 35.8 fl (35.1-43.9); Red Blood Count 5.18 M/mm3 (4.6-6.2); White Blood Count 11.8 K/mm3 (4.4-11.0)
--- NOTE | 2020-05-14 12:05 | CT_ITS ---
STUDY: CTA NECK WITH CONTRAST REASON FOR EXAM: Male, 65 years old. STENOSIS OF CAROTID. RECENT CVA 2 WEEKS AGO RADIATION DOSAGE (If Supplied By Facility): CTDIvol = ( 14.32 ) mGy, DLP = ( 671.34 ) mGycm TECHNIQUE: CT angiography with multi-detector data acquisition was performed from the aortic arch to the skull base following intravenous administration of IV 100mL Isovue-370. MIP images were reconstructed from the axial data set. Post-processing of the angiographic images was performed, with multiplanar reformation and 3D reconstruction. Individualized dose optimization techniques were used for this CT. COMPARISON: None. FINDINGS: AORTIC ARCH: Normal visualized aortic arch. Normal origins of the brachiocephalic, left common carotid, and left subclavian arteries. RIGHT CAROTID ARTERIES: Normal right common carotid artery (CCA). Normal right common carotid bulb. There is mild atherosclerotic plaque formation of the origin of the right internal carotid artery with less than 50% cross sectional diameter stenosis. Normal visualized cervical portion of the right internal carotid artery. Normal origin of the right external carotid artery (ECA). LEFT CAROTID ARTERIES: Normal left common carotid artery (CCA). Normal left common carotid bulb. There is severe atherosclerotic plaque formation of the origin of the left internal carotid artery with a near complete occlusion. Normal visualized cervical portion of the left internal carotid artery. Normal origin of the left external carotid artery (ECA). VERTEBRAL ARTERIES: Normal bilateral vertebral arteries. CT/CTA Neck W/WO Contrast IMPRESSION: There is subtotal occlusion at the origin of the left internal carotid artery caused by soft and hard plaque. Electronically Signed: Angel Putnam MD at 13:45 EST , Service support ,
[2020-05-14 12:23] LABS: AST(SGOT) 35 U/L (15-37); Alanine Aminotransfer ALT/SGPT 56 U/L (16-61); Alkaline Phosphatase 63 U/L (45-117); Anion Gap 5 (5-15); BUN 20 mg/dL (7-18); Calcium,Total 9.7 mg/dL (8.5-10.1); Chloride 104 mmol/L (98-107); Creatinine, Serum 1.05 mg/dL (0.70-1.30); EST Glomerular Filtration Rate 76 mL/min (>60); Est Glom Filt Rate - Afr Amer 92 mL/min (>60); Globulin 3.9 g/dL (2.2-4.2); Glucose 206 mg/dL (74-106); Potassium 4.1 mmol/L (3.5-5.1); Protein, Total 7.9 g/dL (6.4-8.2); Sodium Level 137 mmol/L (136-145)
[2020-05-14 12:30] LABS: Hemoglobin A1c 7.6 % (3.8-5.6)
[2020-05-14 19:54] LABS: Xtra Tube EP Lab EXTRA TUBE
== END ==
PROVIDERS: PCP Internal Medicine; Referring Provider Surgery; Visit Provider Surgery
DX: Z01.818 Encounter for other preprocedural examination (principal); I65.23 Occlusion and stenosis of bilateral carotid arteries; E11.9 Type 2 diabetes mellitus without complications
CPT/HCPCS: 36415; 70498; 80053; 83036; 85027; Q9967

== ENCOUNTER → 2020-05-29 11:02 | Outpatient (CLI) | payer OTHER, SELFPAY ==
[2020-05-14 11:31] VITALS: BMI 32.4
[2020-05-28 13:05] VITALS: BMI 32.3
--- NOTE | 2020-05-29 11:05 | ECHOD_ITS ---
Reason For Study: MURMUR Procedure This was a 2D Doppler, Color Flow transthoracic echocardiogram. Exam performed in department. Left Ventricle Normal LV size. Sigmoid septum. Left ventricular systolic function is lower limits of normal. The estimated ejection fraction is 50 %. Stage 1 diastolic dysfunction. Mid-Anterior : Hypokinetic. Right Ventricle Normal RV size. Normal systolic function. Atria Normal left atrium. Normal right atrium. Mitral Valve Normal mitral valve. Tricuspid Valve Normal tricuspid valve. Mild tricuspid valve insufficiency. Pulmonary artery systolic pressure is 20 mmHg. Aortic Valve Trisinus/trileaflet aortic valve. Mild focal aortic valve calcification. Peak aortic valve gradient 19.1 mmHg. Mean aortic valve gradient 11 mmHg. Pulmonic Valve The pulmonic valve is not well visualized. Great Vessels Normal aortic root. The pulmonary artery is normal size. Normal inferior vena cava. Pericardium/Pleural No pericardial effusion. MMode/2D Measurements & Calculations LVIDd: 4.2 cm IVSd: 1.1 cm Ao root diam: 3.7 cm LVIDs: 3.0 cm LVPWd: 1.2 cm RVDd: 3.4 cm FS: 28.9 % LAV(MOD-bp): 40.6 ml LA A4 area: 14.0 cm2 LA dimension(2D): 3.7 cm LAV(MOD-bp) Indexed: 18.5 ml/m2 LAV(MOD-sp2): 47.4 ml LAV(MOD-sp4): 32.5 ml RA A4 area: 13.0 cm2 Time Measurements MV dec time: 0.14 sec Doppler Measurements & Calculations MV E max sven: 69.1 cm/sec Lat Peak E' Sven: 5.4 cm/sec Med Peak E' Sven: 5.4 cm/sec MV A max sven: 93.7 cm/sec E/E' lat: 12.7 E/E' med: 12.7 MV E/A: 0.74 Ao V2 max: 218.7 cm/sec LV V1 max: 113.0 cm/sec PA V2 max: 115.4 cm/sec Ao max P.1 mmHg LV V1 max P.1 mmHg Ao V2 mean: 162.5 cm/sec LV V1 mean P.8 mmHg Ao mean P.4 mmHg LV V1 mean: 79.9 cm/sec Ao V2 VTI: 38.9 cm LV V1 VTI: 19.4 cm TR max sven: 201.1 cm/sec TR max P.2 mmHg Interpretation Summary Normal LV size. Sigmoid septum. Left ventricular systolic function is lower limits of normal. The estimated ejection fraction is 50 %. Stage 1 diastolic dysfunction. Mid-Anterior : Hypokinetic Ordering Physician: Wallace Pena Referring Physician: Rigo Bergman Performed By: Tanja Jain, ANNE, RVT
== END ==
PROVIDERS: PCP Internal Medicine; Referring Provider Internal Medicine Cardiovascular Disease; Visit Provider Internal Medicine Cardiovascular Disease
DX: Z01.810 Encounter for preprocedural cardiovascular examination (principal); I10 Essential (primary) hypertension
CPT/HCPCS: 93306

== ENCOUNTER → 2020-05-31 05:49 | Outpatient (CLI) | payer OTHER, SELFPAY ==
[2020-05-28 13:05] VITALS: BMI 32.3
--- NOTE | 2020-05-31 09:54 | STRESSREP ---
Stress Test Report Pharmacologic myocardial perfusion stress test. Preoperative evaluation for 65-year-old man. Stress protocol: Resting EKG demonstrates normal sinus rhythm with a rate of 77 bpm poor R wave progression is noted resting blood pressure is 1 and 60/90 8 mmHg. 0.4 mg of regadenoson was infused per usual protocol followed of intravenous saline flush injection continuous EKG monitoring was performed. The maximum heart rate attained was 98 bpm which was 62% of max impacted heart rate the maximum workload was 1 metabolic equivalent. At rest there were no ST or T wave changes noted to suggest abnormal flow reserve at peak infusion nonspecific ST-T wave changes were noted. The final blood pressure was 148/90 mmHg. Myocardial perfusion protocol. 11.9 mCi of technetium 99m sestamibi was injected at rest. 0.4 mg of regadenoson was infused per usual protocol. At peak infusion 34.1 mCi of technetium 99m sestamibi was injected. Stress and rest images were reconstructed and compared in the short axis vertical long horizontal long axis. Gated images were also obtained Perfusion SPECT analysis: Review of the images demonstrate normal uptake of tracer noted on the stress images with a small area in the inferior apical wall with reduced perfusion. The septum anterior wall and lateral wall appear to be well perfused the inferior wall is also well perfused. The resting images demonstrate a similar patent. The above is suggestive of a small inferoapical infarct. No reversibility is noted suggest ischemia. Gated SPECT analysis: The gated ejection fraction is 64%. Conclusion: Pharmacologic myocardial perfusion stress test with evidence of small inferior apical infarct. No ischemia is noted. Preserved ejection fraction.
== END ==
PROVIDERS: PCP Internal Medicine; Referring Provider Internal Medicine Cardiovascular Disease; Visit Provider Internal Medicine Cardiovascular Disease
DX: Z01.810 Encounter for preprocedural cardiovascular examination (principal); I65.22 Occlusion and stenosis of left carotid artery
CPT/HCPCS: 78452; 93017; A9500; A4216; J2785

== ENCOUNTER → 2020-07-01 12:24 | Outpatient (CLI) | payer OTHER, SELFPAY ==
[2020-06-17 08:55] VITALS: BMI 32.1
[2020-07-01 14:53] LABS: Absolute Lymphocyte Count 1.86 X10^3/uL (0.83-4.51); Basophil# 0.03 X10^3/uL; Basophil% 0.3 % (0-1); Eosinophil# 0.02 X10^3/uL; Eosinophils% 0.2 % (0-5); Hematocrit 42.9 % (40-54); Lymphocyte # 1.86 X10^3/ul (4.0); Lymphocyte % 16.4 % (19-41); Mean Corp Hgb Conc 32.6 g/dL (32-36); Mean Corpuscular Hgb 28.5 pg (27.0-32.0); Mean Corpuscular Volume 87.2 fL (80-94); Mean Platelet Vol. 10.4 fl (6.2-12.0); Monocyte# 1.35 X10^3/uL; Monocyte% 11.9 % (0-10); NRBC Flagged by Analyzer 0 % (0-5); Neutrophil # 8.03 X10^3/uL (2.7-7.7); Neutrophil % 70.8 % (47-70); Platelet Count 222 K/mm3 (150-450); RBC Distribution Width CV 13.1 % (11.6-14.6); RBC Distribution Width SD 41.7 fl (35.1-43.9); Red Blood Count 4.92 M/mm3 (4.6-6.2); White Blood Count 11.3 K/mm3 (4.4-11.0)
[2020-07-01 15:36] LABS: AST(SGOT) 54 U/L (15-37); Alanine Aminotransfer ALT/SGPT 82 U/L (16-61); Alkaline Phosphatase 69 U/L (45-117); Anion Gap 9 (5-15); BUN 25 mg/dL (7-18); BUN/Creat Ratio 18.2 RATIO (10-20); Calcium,Total 9.4 mg/dL (8.5-10.1); Chloride 101 mmol/L (98-107); Cholesterol 146 mg/dL (200); Creatinine, Serum 1.37 mg/dL (0.70-1.30); EST Glomerular Filtration Rate 56 mL/min (>60); Est Glom Filt Rate - Afr Amer 67 mL/min (>60); Globulin 4.1 g/dL (2.2-4.2); Glucose 206 mg/dL (74-106); High Density Lipoprotein 46 mg/dL; Potassium 4.6 mmol/L (3.5-5.1); Protein, Total 8.1 g/dL (6.4-8.2); Sodium Level 135 mmol/L (136-145); Triglycerides 119 mg/dL; Very Low Density Lipoprotein 24 mg/dL (5-40)
== END ==
PROVIDERS: PCP Internal Medicine; Visit Provider Internal Medicine
DX: E11.9 Type 2 diabetes mellitus without complications (principal)
CPT/HCPCS: 36415; 80053; 80061; 85025

== ENCOUNTER 2020-10-31 13:30 | Outpatient (RCR) | payer OTHER, SELFPAY ==
[2020-06-17 08:55] VITALS: BMI 32.1
--- NOTE | 2020-06-21 16:40 | HP.SP.AD ---
History - History Date of Eval: 06/21/20 Other Relevant Medical History/Diagnoses/Surgery: L ear very poor hearing (bilateral hearing loss), L eye blind. Head MRI (05/07/2020) revealed a subacute left parietal lobe watershed infarct with a late subacute hemorrhage within the head of the left caudate nucleus and the anterior aspect of the left putamen. He takes lisinopril/hydrochlorothiazide for hypertension. He has chronic bilateral hearing loss that is worse on the left. 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 Smoking Status: Former smoker Hx Smoking: Yes - quit 20 yrs ago Hx Tobacco Use: No - Pain Is pain an issue with your current prescribed condition?: No - Personal Right Hearing Abillity: Hard of Hearing Left Hearing Abillity: Hard of Hearing Visual Assistive Devices: Glasses Patients Living Arrangements: With Family Patient Allergies - Allergies Allergies Penicillins [PCN] Allergy (Verified 06/17/20 09:03) Other Subjective Oral Motor - Subjective Patient Reports: Difficulty being Understood Dentures ill fitting: No - Comments Comments: Pt has natural dentition, with need for dental care. Pt unable to follow direction to smile, despite repetition followed by max cues, suggestive of mild apraxia. Objective Oral Motor - Oral Status Dentition: Decay BDAE-3 - Severity Level: 2 Level Detail: Conversation about familiar subjects is possible with help from listener. Frequent failures to convey the idea, but the patient shares the burden of communication. - Rating Scale Profile of speech character Articulation Agility: 5 Detail: Facility at phoneme and syllable level ranges from 1 being unable to form speech sounds to 7 being never impaired Phrase length: 6 Detail: Longest occasional uninterrupted word runs Grammatical form: 2 Detail: Variety of grammatical constructions; use of grammatical mophemes: 1=nosyntactic word groupings ranging to 7 being normal range of syntax; normal facility with grammatical words Melodic Line (Prosody): 2 Detail: 1=word b word or aprosodic speech ranging to 7 being normal speech sheryl Paraphasia in running speech: 2 Detail: 1 present in evrey utterance ranging to 7 s absent Word finding relative to fluency: 3 Detail: 1 is fluent but empty speech ranging to 7 as output primarily content words - Summary Profile Conversation/Speech Conversational/Expository Speech Percentile: 50 Simple social responses Percentile: 50 - Summary Profile Auditory Comprehension Auditory Comprehension Percentile: 40 Basic word discrimination Percentile: 40 Commands Percentile: 30 Complex Ideational Material Percentile: 30 - Summary Profile Recitation Recitation automatized sequences Percentile: 100 - Summary Profile Repitition Repetition Percentile: 60 Words Percentile: 60 Sentences Percentile: 60 - Summary Profile Naming Naming Percentile: 60 Responsive Naming Percentile: 60 [place] Naming Test Percentile: 70 Special Categories Percentile: 70 - Summary Profile Reading Matching cases and scripts: 100 Number matchin Picture - word matchin Oral word readin Oral sentence readin Oral sentence comprehension: 70 Sentences/Paragraph comprehension: 70 - Summary Profile Writing Form: 100 Letter choice: 100 Motor faclility: 8 Primer words: 100 Regular phonics: 50 Common irregular words: 80 Written picture namin Narrative writin - BDAE-3 Comments Subjective Speech is slow with pauses and repeated sounds, characterstic of neurogenic stuttering), 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 Moderate anomia, with aprosodic speech. Written expression is also impaired, with reading skills relatively intact, though comprehension is reduced. Plan - Plan Plan: Patient would benefit from skilled speech therapy services to address expressive & receptive language deficit secondary to cerebral infarct. Without skilled speech therapy services, patient is at risk for further cognitive decline as well as the inability to communicate wants and needs effectively to different conversational partners, maintain safety and participate in functional living environment. Consider further cognitive-linguistic assessment with goal adjustment as needed as well as treatment for neurogenic stuttering secondary to cerbral infarct. - Frequency Frequency: 1x/Week Duration: 4 Months - Prognosis Prognosis: Good - Goal #1-5 Goal #1: Patient will develop functional, cognitive-linguistic based skills and utilize compensatory strategies to communicate wants and needs effectively to different conversational partners, maintain safety and participate in functional living environment. Goal #2: Patient will repeat functional phrases (incorporating Melodic Intonation Therapy) with 60% accuracy and mod cues for voicing, etc... Goal #3: Patient will comprehend and respond appropriately via speech or writing to WH- questions with 60% accuracy. Goal #4: Goal adjustment as necessary Education - Patient Instruction Patient Education: Diagnosis, Treatment Plan, Goals Teaching Method: Discussion Response to teaching: Verbalize understanding
--- NOTE | 2020-08-22 18:55 | HP.SP.ADRE_ITS ---
Previous/Current Goals - Goals 1-5 Previous Goal #1: Patient will develop functional, cognitive-linguistic based skills and utilize compensatory strategies to communicate wants and needs effectively to different conversational partners, maintain safety and participate in functional living environment. Goal 1 Status: Progressing - The pt has been trained in Semantic Feature Analysis and circumlocution strategies to improve word retrieval; however, he requires moderate cues for use of strategies at this time. Previous Goal #2: Patient will repeat functional phrases (incorporating Melodic Intonation Therapy) with 60% accuracy and mod cues for voicing, etc... Goal 2 Status: GOAL MET - The pt repeats sentences with 80% accuracy. Previous Goal #3: Patient will comprehend and respond appropriately via speech or writing to WH- questions with 60% accuracy. Goal 3 Status: GOAL MET - The pt answers WH- questions in conversation with >90% accuracy. Previous Goal #4: Goal adjustment as necessary History - History Date of Eval: 06/21/20 Other Relevant Medical History/Diagnoses/Surgery: L ear very poor hearing (bilateral hearing loss), L eye blind. Head MRI (05/07/2020) revealed a subacute left parietal lobe watershed infarct with a late subacute hemorrhage within the head of the left caudate nucleus and the anterior aspect of the left putamen. He takes lisinopril/hydrochlorothiazide for hypertension. He has chronic bilateral hearing loss that is worse on the left. 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 Smoking Status: Former smoker Hx Smoking: Yes - quit 20 yrs ago Hx Tobacco Use: No - Pain Is pain an issue with your current prescribed condition?: No - Personal Right Hearing Abillity: Hard of Hearing Left Hearing Abillity: Hard of Hearing Visual Assistive Devices: Glasses Patients Living Arrangements: With Family Patient Allergies - Allergies Allergies Penicillins [PCN] Allergy (Verified 06/17/20 09:03) Other Other Impressions - Comments Informal Fluency Assessment -: Informally assessed fluency with 200-word conversation and reading samples. In conversational sample, the patient presented with dysfluencies on 33/200 acc (16.5% dysfluencies) characterized by interjections, part word repetitions, whole word repetitions, and prolongations. In reading sample, the patient presented with dysfluencies on 20/200 acc (10% dysfluencies) characterized by interjections, part word repetitions, whole word repetitions, blocks, and prolongations. At times, he presents with the secondary behavior of diverting eye contact from his listener when producing dysfluencies. The pt appears to present with mild-moderate neurogenic stuttering characterized by mostly part word repetitions, prolongations, and interjections. Quick Aphasia Battery -: Quick Aphasia Battery (QAB) was administered as part of re-assessment of mixed expressive and receptive aphasia s/p CVA. The QAB is made up of eight subtests, each comprising sets of items that probe different language domains. He completed the following subtests: Level of Consciousness - 8/8, Word Comprehension - 32/32, Sentence Comprehension - 48/48, Word Finding - /24, Grammatical construction - , Speech Motor Programming - 3.5/4, Repetition - , and Reading . The pt scored 180.5/200 and presented with mild- moderate impairment in expressive language abilities and WNL on auditory comprehension and reading portions of the assessment. Plan - Plan Plan: Will recommend continued OP speech therapy services to address remaining functional deficits related to expressive aphasia and neurogenic stuttering. Without skilled ST services, the pt is at risk for decreased independence completing necessary vocational tasks, as well as difficulty communicating with others in social and vocational settings. - Recommendations MBS: No Treatment Warranted: Yes - Frequency Frequency: 1x/Week Duration: 6 Months - Prognosis Prognosis: Excellent - Goals that are Established: Determination:: Goals will be added/modified as deemed necessary and appropriate. Therapy will be discontinued when results of re-evaluation indicate therapy is no longer needed or lack of progress has been documented. - Goal #1-5 Goal #1: The pt will complete generative naming tasks X10-15 items in 1 minute with minimal verbal cues for use of compensatory strategies (e.g. SFA, circumlocution) across 3/4 consecutive sessions to improve word retrieval in conversation. Prompts: Mod Goal #2: The pt will complete convergent naming tasks with 90% accuracy with minimal verbal cues across 3/4 consecutive sessions to improve word retrieval in conversation. Prompts: Mod Goal #3: The pt will utilize compensatory strategies (e.g. slow rate, prolongations, and easy onset) to decrease dysfluencies to <10% in 3-5 minute conversational samples with minimal verbal cues to improve conversational fluency. Prompts: Max
--- NOTE | 2020-11-07 14:19 | HP.SP.DC ---
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 He attended 18 speech therapy sessions during which he met goals for auditory comprehension, confrontation naming, and repetition. He demonstrated great progress towards more recent goals for divergent/convergent naming and speech fluency. Most recently, Tanner was completing divergent and convergent naming tasks with approximately 70-90% accuracy with minimal verbal cues and producing speech in simple conversation with only 8-12% dysfluencies. He has met his insurance coverage date and would like to discharge from speech therapy at this time. Would recommend return to speech therapy in the future if Tanner would have any increased difficulty in the above mentioned areas (auditory comprehension, verbal expression, repetition, and speech fluency), as he has had excellent participation and demonstrated great progress during the POC.
== END 2020-10-31 19:00 | disposition home or self-care (01) ==
LOC: SP 13:30
PROVIDERS: PCP Internal Medicine; Referring Provider Psychiatry & Neurology Neurology; Visit Provider Psychiatry & Neurology Neurology
DX: I69.320 Aphasia following cerebral infarction (principal)
CPT/HCPCS: 92507; 92523

== ENCOUNTER → 2020-11-26 11:20 | Outpatient (CLI) | payer OTHER, SELFPAY ==
[2020-11-26 15:44] LABS: AST(SGOT) 19 U/L (15-37); Alanine Aminotransfer ALT/SGPT 35 U/L (16-61); Albumin, Serum 4.1 g/dL (3.2-5.0); Alkaline Phosphatase 67 U/L (45-117); BUN 24 mg/dL (7-18); Bilirubin, Direct 0.17 mg/dL (0.00-0.30); Creatinine, Serum 1.04 mg/dL (0.70-1.30); EST Glomerular Filtration Rate 77 mL/min (>60); Est Glom Filt Rate - Afr Amer 93 mL/min (>60); Globulin 3.8 g/dL (2.2-4.2); Protein, Total 7.9 g/dL (6.4-8.2)
== END ==
PROVIDERS: PCP Internal Medicine; Referring Provider Psychiatry & Neurology Neurology; Visit Provider Psychiatry & Neurology Neurology
DX: R74.01 Elevation of levels of liver transaminase levels (principal); N28.9 Disorder of kidney and ureter, unspecified
CPT/HCPCS: 36415; 80076; 82565; 84520

== ENCOUNTER → 2021-02-10 12:32 | Outpatient (CLI) | payer OTHER, SELFPAY ==
--- NOTE | 2021-02-10 12:35 | MRI_ITS ---
STUDY: MRA OF THE HEAD WITHOUT CONTRAST REASON FOR EXAM: Male, 65 years old. Left Middle Carotid Artery Occlusion. TECHNIQUE: 3-D [id number] (TOF) imaging was performed with MIPs. The study was performed unenhanced. COMPARISON: 05/13/2020. FINDINGS: Patent right cavernous carotid artery. Patent left cavernous carotid artery. Patent right A1 segments of the anterior cerebral artery. Patent left A1 segments of the anterior cerebral artery. Unremarkable anterior communicating artery (ACOM) region. Normal bilateral A2 segments of the anterior cerebral arteries. Patent right M1 and M2 segments of the middle cerebral arteries, with a unremarkable M1 bifurcation. There is occlusion of the middle cerebral artery at the M1 segment. There is no demonstrated M2 or M3 patency. There is hyperintense signal involving the left caudate head and putamen which is stable in comparison with the prior examination. There is non-visualization of the right posterior communicating artery (PCOM). There is a persistent origin of the left posterior cerebral artery with absence of the P1 segment of the left posterior cerebral artery. Patent basilar artery with a normal basilar bifurcation. Patent bilateral posterior cerebral arteries. MRI/MRA Head ONLY without Contrast IMPRESSION: Unchanged left MCA occlusion. Persistent left basal ganglia hemorrhage. Comparison with prior CT examinations if available or Further evaluation with CT of the head is recommended to determine stability. Electronically Signed: Dylan Lancaster MD at 8:45 EST Tel , Service support ,
--- NOTE | 2021-02-10 13:10 | CDU_ITS ---
Reason For Study: Carotid stenosis Rt. Velocities/BP Lt. Velocities/BP Prox CCA 70.8/21.3 cm/sec. Prox CCA 60.7/20.1 cm/sec. Mid CCA 51.2/16 cm/sec. Mid CCA 80.5/27.7 cm/sec. Dist CCA 52.5/17.3 cm/sec. Dist CCA 73.9/22 cm/sec. Prox ICA 64.3/16 cm/sec. Prox ICA 49.8/14.6 cm/sec. Mid ICA 52/23.4 cm/sec. Mid ICA 54.2/23.4 cm/sec. Dist ICA 70.7/31.1 cm/sec. Dist ICA 57.5/20.1 cm/sec. Rt. ICA/CCA = 1.35. Lt. ICA/CCA = 0.78. Prox ECA 86.5/14.7 cm/sec. Prox ECA 146.7/31.6 cm/sec. Rt. Vert. 29.6/12.6 cm/sec. Lt. Vert. 21.2/8.1 cm/sec. Right Extracranial There is homogeneous, smooth atherosclerotic plaque noted in the right common carotid artery. There is heterogeneous, irregular atherosclerotic plaque noted in the right internal carotid artery. There is heterogeneous, irregular atherosclerotic plaque noted in the right external carotid artery. Antegrade flow is noted in the right vertebral artery. Left Extracranial There is homogeneous, smooth atherosclerotic plaque noted in the left common carotid artery. There is homogeneous, smooth atherosclerotic plaque noted in the left internal carotid artery. The left internal carotid artery is very tortuous. There is homogeneous, smooth atherosclerotic plaque noted in the left external carotid artery. Antegrade flow is noted in the left vertebral artery. Procedure Carotid Duplex [id number]. This is a Carotid Duplex examination using B-mode, color flow and specral Doppler. Exam performed in department. VL/Carotid Duplex Ultrasound Interpretation Summary Mild (<50%) stenosis right extracranial internal carotid. Mild (<50%) stenosis left extracranial internal carotid. Flow within the vertebral arteries is antegrade bilaterally. Ordering Physician: Ace Posada Referring Physician: Rigo Bergman Performed By: Yael Vazquez RVT
== END ==
PROVIDERS: PCP Internal Medicine; Referring Provider Psychiatry & Neurology Neurology; Visit Provider Psychiatry & Neurology Neurology
DX: I65.29 Occlusion and stenosis of unspecified carotid artery (principal); Z86.73 Personal history of transient ischemic attack (TIA), and cerebral infarction without residual deficits
CPT/HCPCS: 70544; 93880

== ENCOUNTER 2021-06-23 15:55 | Outpatient (CLI) | payer OTHER, SELFPAY ==
[2021-06-23 16:32] LABS: Absolute Lymphocyte Count 2.56 X10^3/uL (0.83-4.51); Absolute Neutrophil Count 6.8 X10^3/uL (2.0-7.7); Basophil# 0.06 X10^3/uL; Basophil% 0.6 % (0-1); Eosinophil# 0.21 X10^3/uL; Hematocrit 44.3 % (40-54); Lymphocyte # 2.56 X10^3/ul (0.83-4.51); Lymphocyte % 24.2 % (19-41); Mean Corp Hgb Conc 33.9 g/dL (32-36); Mean Corpuscular Hgb 28.9 pg (27.0-32.0); Mean Corpuscular Volume 85.4 fL (80-94); Mean Platelet Vol. 10.4 fl (6.2-12.0); Monocyte# 0.88 X10^3/uL; Monocyte% 8.3 % (0-10); NRBC Flagged by Analyzer 0 % (0-5); Neutrophil # 6.79 X10^3/uL (2.7-7.7); Neutrophil % 64.3 % (47-70); Platelet Count 202 K/mm3 (150-450); RBC Distribution Width CV 13.4 % (11.6-14.6); RBC Distribution Width SD 41.5 fl (35.1-43.9); Red Blood Count 5.19 M/mm3 (4.6-6.2); White Blood Count 10.6 K/mm3 (4.4-11.0)
[2021-06-23 16:48] LABS: ALB/GLOB Ratio 1.1 RATIO (0.9-2.4); AST(SGOT) 14 U/L (15-37); Alanine Aminotransfer ALT/SGPT 29 U/L (16-61); Albumin, Serum 4.2 g/dL (3.2-5.0); Alkaline Phosphatase 60 U/L (45-117); Anion Gap 6 (5-15); BUN 24 mg/dL (7-18); Calcium,Total 9.2 mg/dL (8.5-10.1); Chloride 102 mmol/L (98-107); Cholesterol 206 mg/dL (200); EST Glomerular Filtration Rate 65 mL/min (>60); Est Glom Filt Rate - Afr Amer 78 mL/min (>60); Globulin 3.7 g/dL (2.2-4.2); Glucose 199 mg/dL (74-106); High Density Lipoprotein 46 mg/dL; Potassium 3.9 mmol/L (3.5-5.1); Protein, Total 7.9 g/dL (6.4-8.2); Sodium Level 137 mmol/L (136-145); Triglycerides 358 mg/dL; Very Low Density Lipoprotein 72 mg/dL (5-40)
== END 2021-06-23 23:59 | disposition home or self-care (01) ==
LOC: BIMLAB 15:55
PROVIDERS: PCP Internal Medicine; Referring Provider Internal Medicine; Visit Provider Internal Medicine
DX: E11.29 Type 2 diabetes mellitus with other diabetic kidney complication (principal); N18.9 Chronic kidney disease, unspecified; R80.9 Proteinuria, unspecified; I12.9 Hypertensive chronic kidney disease with stage 1 through stage 4 chronic kidney disease, or unspecified chronic kidney disease
CPT/HCPCS: 36415; 80053; 80061; 85025

== ENCOUNTER 2021-07-10 13:13 | Outpatient (CLI) | payer OTHER, SELFPAY ==
--- NOTE | 2021-07-10 13:14 | MRI_ITS ---
EXAM: MR HEAD WITHOUT INTRAVENOUS CONTRAST CLINICAL INDICATION: Hx of CVA. Dizziness TECHNIQUE: Multiplanar and multisequence MR images of the brain were obtained without intravenous contrast. This report was created using Geno report generation technology. COMPARISON: MRI brain with and without contrast 05/07/2020. FINDINGS: BRAIN AND EXTRA-AXIAL SPACES: Old ischemic infarct in the left centrum semiovale, left periventricular white matter and left periatrial white matter, previously acute. No diffusion restriction to suspect acute or subacute ischemic infarct. No intra- or extra-axial hemorrhage. No intracranial mass or mass effect. Posterior fossa structures are unremarkable. No hydrocephalus. Basal cisterns are patent. SELLA: Unremarkable. Normal sella turcica, pituitary gland, infundibular stalk, optic chiasm and hypothalamus. AUDITORY SYSTEM: Unremarkable. The internal auditory canals are patent. BONES/JOINTS: Unremarkable. No discrete lytic or blastic abnormalities. SINUSES: Unremarkable as visualized. Clear. MASTOID AIR CELLS: Unremarkable as visualized. Clear. ORBITS: Unremarkable as visualized. Both globes, extraocular muscles, optic nerves and retrobulbar fat appear unremarkable. VASCULATURE: Unremarkable as visualized. Normal flow voids in the major intracranial circulation. MRI/Brain without Contrast IMPRESSION: 1. No MRI evidence of acute or subacute ischemic infarct or acute intracranial abnormality. 2. Old ischemic infarct along the left centrum semiovale and left periventricular white matter, previously acute. Electronically Signed: Frantz Frost MD at 16:03 EDT ,
== END 2021-07-10 23:59 | disposition home or self-care (01) ==
LOC: MRI 13:14
PROVIDERS: PCP Internal Medicine; Referring Provider Internal Medicine; Visit Provider Internal Medicine
DX: R42 Dizziness and giddiness (principal); I61.9 Nontraumatic intracerebral hemorrhage, unspecified; I63.20 Cerebral infarction due to unspecified occlusion or stenosis of unspecified precerebral arteries
CPT/HCPCS: 70551

== ENCOUNTER → 2022-01-05 | Outpatient (CLI) | payer OTHER, SELFPAY ==
[2022-01-05 13:26] LABS: Anion Gap 6 (5-15); BUN 20 mg/dL (7-18); BUN/Creat Ratio 14.1 RATIO (10-20); Calcium,Total 9.5 mg/dL (8.5-10.1); Chloride 102 mmol/L (98-107); Creatinine, Serum 1.42 mg/dL (0.70-1.30); EST Glomerular Filtration Rate 53 mL/min (>60); Est Glom Filt Rate - Afr Amer 64 mL/min (>60); Glucose 339 mg/dL (74-106); Sodium Level 138 mmol/L (136-145)
== END | disposition home or self-care (01) ==
LOC: BIMLAB 10:41
PROVIDERS: PCP Internal Medicine; Referring Provider Internal Medicine; Visit Provider Internal Medicine
DX: E11.9 Type 2 diabetes mellitus without complications (principal)
CPT/HCPCS: 36415; 80048

== ENCOUNTER → 2022-03-19 | Outpatient (CLI) | payer MEDICARE, OTHER, SELFPAY ==
--- NOTE | 2022-03-19 10:07 | CDU_ITS ---
Reason For Study: CVA Rt. Velocities/BP Lt. Velocities/BP Prox CCA 86.3/11.6 cm/sec. Prox CCA 65.2/19.0 cm/sec. Mid CCA 81.5/22.0 cm/sec. Mid CCA 85.0/25.6 cm/sec. Dist CCA 53.2/19.2 cm/sec. Dist CCA 88.8/27.4 cm/sec. Prox ICA 56.9/21.2 cm/sec. Prox ICA 54.2/12.4 cm/sec. Mid ICA 61.8/28.6 cm/sec. Mid ICA 66.3/23.4 cm/sec. Dist ICA 67.9/27.4 cm/sec. Dist ICA 83.9/32.2 cm/sec. Rt. ICA/CCA = 0.8. Lt. ICA/CCA = 1.0. Prox ECA 106.0/21.2 cm/sec. Prox ECA 171.9/24.8 cm/sec. Rt. Vert. 22.5/9.5 cm/sec. Lt. Vert. 24.3/8.0 cm/sec. Right Extracranial There is heterogeneous, irregular atherosclerotic plaque noted in the right common carotid artery. There is heterogeneous, irregular atherosclerotic plaque noted in the right internal carotid artery. There is heterogeneous, irregular atherosclerotic plaque noted in the right external carotid artery. Antegrade flow is noted in the right vertebral artery. Left Extracranial There is heterogeneous, irregular atherosclerotic plaque noted in the left common carotid artery. There is heterogeneous, smooth atherosclerotic plaque noted in the left internal carotid artery. Previous proximal endarterectomy. There is heterogeneous, irregular atherosclerotic plaque noted in the left external carotid artery. Antegrade flow is noted in the left vertebral artery. Procedure Carotid Duplex [id number]. This is a Carotid Duplex examination using B-mode, color flow and specral Doppler. The exam was diagnostic. Exam performed in department. VL/Carotid Duplex Ultrasound Interpretation Summary Mild (<50%) stenosis right extracranial internal carotid. Mild (<50%) stenosis left extracranial internal carotid. Flow within the vertebral arteries is antegrade bilaterally. Ordering Physician: Slava Rodriguez Referring Physician: Rigo Bergman Performed By: Tanner Bernardo RVT
== END | disposition home or self-care (01) ==
PROVIDERS: PCP Internal Medicine; Visit Provider Surgery Vascular Surgery
DX: I63.9 Cerebral infarction, unspecified (principal); I65.23 Occlusion and stenosis of bilateral carotid arteries
CPT/HCPCS: 93880

== ENCOUNTER → 2022-07-20 | Outpatient (CLI) | payer MEDICARE, OTHER, SELFPAY ==
[2022-07-20 16:48] LABS: ALB/GLOB Ratio 1.2 RATIO (0.9-2.4); AST(SGOT) 19 U/L (15-37); Alanine Aminotransfer ALT/SGPT 25 U/L (16-61); Albumin, Serum 4.1 g/dL (3.2-5.0); Alkaline Phosphatase 61 U/L (45-117); Anion Gap 6 (5-15); BUN 28 mg/dL (7-18); BUN/Creat Ratio 24.3 RATIO (10-20); Calcium,Total 9.2 mg/dL (8.5-10.1); Chloride 103 mmol/L (98-107); Cholesterol 133 mg/dL (200); Creatinine, Serum 1.15 mg/dL (0.70-1.30); EST Glomerular Filtration Rate 68 mL/min (>60); Est Glom Filt Rate - Afr Amer 82 mL/min (>60); Globulin 3.3 g/dL (2.2-4.2); Glucose 164 mg/dL (74-106); High Density Lipoprotein 44 mg/dL; Potassium 4.3 mmol/L (3.5-5.1); Protein, Total 7.4 g/dL (6.4-8.2); Sodium Level 137 mmol/L (136-145); Triglycerides 245 mg/dL; Very Low Density Lipoprotein 49 mg/dL (5-40)
[2022-07-20 16:53] LABS: Microalbumin,Random Urine 88.9 mg/L (NO RANGE EST.); Microalbumin:Creatinine Ratio 108.3 mg/g CRE (<30 mg/g CRE)
[2022-07-20 17:16] LABS: Absolute Lymphocyte Count 2.15 X10^3/uL (0.83-4.51); Basophil# 0.06 X10^3/uL; Basophil% 0.7 % (0-1); Eosinophil# 0.14 X10^3/uL; Eosinophils% 1.5 % (0-5); Hematocrit 44.8 % (40-54); Hemoglobin 14.3 g/dL (13.0-16.5); Lymphocyte # 2.15 X10^3/ul (0.83-4.51); Lymphocyte % 23.8 % (19-41); Mean Corp Hgb Conc 31.9 g/dL (32-36); Mean Corpuscular Hgb 27.2 pg (27.0-32.0); Mean Corpuscular Volume 85.2 fL (80-94); Mean Platelet Vol. 10.8 fl (6.2-12.0); Monocyte# 0.63 X10^3/uL; NRBC Flagged by Analyzer 0 % (0-5); Neutrophil # 6.02 X10^3/uL (2.7-7.7); Neutrophil % 66.6 % (47-70); Platelet Count 200 K/mm3 (150-450); RBC Distribution Width CV 13.5 % (11.6-14.6); RBC Distribution Width SD 41.6 fl (35.1-43.9); Red Blood Count 5.26 M/mm3 (4.6-6.2)
== END | disposition home or self-care (01) ==
LOC: BIMLAB 11:37
PROVIDERS: PCP Internal Medicine; Visit Provider Internal Medicine
DX: I63.20 Cerebral infarction due to unspecified occlusion or stenosis of unspecified precerebral arteries (principal); E11.9 Type 2 diabetes mellitus without complications
CPT/HCPCS: 36415; 80053; 80061; 82043; 82570; 85025

== ENCOUNTER → 2023-01-20 | Outpatient (CLI) | payer MEDICARE, SELFPAY ==
[2023-01-20 12:43] LABS: Absolute Lymphocyte Count 2.28 X10^3/uL (0.83-4.51); Absolute Neutrophil Count 9.4 X10^3/uL (2.0-7.7); Basophil# 0.06 X10^3/uL; Basophil% 0.5 % (0-1); Eosinophil# 0.11 X10^3/uL; Eosinophils% 0.9 % (0-5); Hematocrit 45.4 % (40-54); Hemoglobin 14.6 g/dL (13.0-16.5); Lymphocyte # 2.28 X10^3/ul (0.83-4.51); Lymphocyte % 17.8 % (19-41); Mean Corp Hgb Conc 32.2 g/dL (32-36); Mean Corpuscular Hgb 27.6 pg (27.0-32.0); Mean Corpuscular Volume 85.8 fL (80-94); Mean Platelet Vol. 10.7 fl (6.2-12.0); Monocyte# 0.92 X10^3/uL; Monocyte% 7.2 % (0-10); NRBC Flagged by Analyzer 0 % (0-5); Neutrophil # 9.36 X10^3/uL (2.7-7.7); Neutrophil % 73.1 % (47-70); Platelet Count 212 K/mm3 (150-450); RBC Distribution Width CV 13.2 % (11.6-14.6); RBC Distribution Width SD 40.9 fl (35.1-43.9); Red Blood Count 5.29 M/mm3 (4.6-6.2); White Blood Count 12.8 K/mm3 (4.4-11.0)
[2023-01-20 14:21] LABS: Anion Gap 12 (5-15); BUN 18 mg/dL (7-18); BUN/Creat Ratio 17.8 RATIO (10-20); Calcium,Total 9.5 mg/dL (8.5-10.1); Chloride 103 mmol/L (98-107); Creatinine, Serum 1.01 mg/dL (0.70-1.30); EST Glomerular Filtration Rate 79 mL/min (>60); Est Glom Filt Rate - Afr Amer 95 mL/min (>60); Glucose 211 mg/dL (74-106); Potassium 4.3 mmol/L (3.5-5.1); Sodium Level 140 mmol/L (136-145)
== END | disposition home or self-care (01) ==
LOC: BIMLAB 11:40
PROVIDERS: PCP Internal Medicine; Visit Provider Internal Medicine
DX: I10 Essential (primary) hypertension (principal)
CPT/HCPCS: 36415; 80048; 85025

== ENCOUNTER → 2023-04-19 | Outpatient (CLI) | payer MEDICARE, SELFPAY ==
--- NOTE | 2023-04-19 10:09 | CDU_ITS ---
Reason For Study: Carotid artery stenosis Rt. Velocities/BP Lt. Velocities/BP Prox CCA 61.7/17.3 cm/sec. Prox CCA 65.7/18.6 cm/sec. Mid CCA 71.1/21.1 cm/sec. Mid CCA 77/21.2 cm/sec. Dist CCA 59.8/18.2 cm/sec. Dist CCA 85.7/20.3 cm/sec. Prox ICA 78./25.8 cm/sec. Prox ICA 61.9/16.8 cm/sec. Mid ICA 65.5/24.8 cm/sec. Mid ICA 59.2/22.6 cm/sec. Dist ICA 78.7/34.3 cm/sec. Dist ICA 44/15.6 cm/sec. Rt. ICA/CCA = 1.28. Lt. ICA/CCA = 0.80. Prox ECA 90/15.4 cm/sec. Prox ECA 143/27.9 cm/sec. Rt. Vert. 33/12.3 cm/sec. Lt. Vert. 28/7.3 cm/sec. Right Extracranial There is heterogeneous, irregular atherosclerotic plaque noted in the right common carotid artery. There is heterogeneous, irregular atherosclerotic plaque noted in the right internal carotid artery. There is heterogeneous, irregular atherosclerotic plaque noted in the right external carotid artery. Antegrade flow is noted in the right vertebral artery. Left Extracranial There is heterogeneous, irregular atherosclerotic plaque noted in the left common carotid artery. There is intimal thickening but no significant atherosclerotic plaque noted in the left internal carotid artery. There is homogeneous, smooth atherosclerotic plaque noted in the left external carotid artery. Antegrade flow is noted in the left vertebral artery. Procedure Carotid Duplex [id number]. This is a Carotid Duplex examination using B-mode, color flow and specral Doppler. Exam performed in department. VL/Carotid Duplex Ultrasound Interpretation Summary Mild (<50%) stenosis right extracranial internal carotid. Mild (<50%) stenosis left extracranial internal carotid. Flow within the vertebral arteries is antegrade bilaterally. Ordering Physician: Slava Rodriguez Referring Physician: Rigo Bergman Performed By: Yael Vazquez RVT
--- OUTSIDE RECORDS SUMMARY | 2023-04-19 10:26 | XMS RPT_ITS | CCD ---
Author Name Unknown Address [facility] [place] [address] Organization [facility] Care Team Providers Care Road Repairer Name Role Phone Dior Newby MD Primary Care Provider Macy Billingsley Unavailable [phone] DIOR NEWBY Primary Care Unavailable SULEMA ALMARAZ Attending Unavailable DIOR NEWBY Primary Care Unavailable JOHNATHAN DELANEY Attending Unavailable MACY BILLINGSLEY Referring Unavaila ble Allergies Allergy Classification Reported Allergen(s) Allergy Type Date of Onset Reaction(s) Facility (3 sources) Penicillins; Translations: [PENICILLINS] Propensity to adverse reactions 12-09-2004 [facility] Work Phone: Medications Completed/Discontinued Medications Medication Drug Class(es) Dates Sig (Normalized) Sig (Original) aspirin 81 mg delayed release oral tablet (2 sources) Platelet Aggregation Inhibitor, Nonsteroidal Anti-inflammatory Drug Start: 01-22-2022 take 1 tablet by mouth once daily aspirin, enteric coated (ASPIRIN, ENTERIC COATED) 81 mg EC tablet Take 81 mg by mouth once daily. 0 01/22/2022 Active Problems Problem Classification Problem Date Documented Da te Episodic/Chronic Cataract (6 sources) Artificial lens present; Translations: [Presence of intraocular lens] Onset: 03-24-2022 Chronic Diabetes mellitus without complication (5 sources) Diabetes mellitus type 2 without retinopathy; Translations: [Type 2 diabetes mellitus without complications] Onset: 12-09-2004 Chronic Disorders of lipid metabolism (2 sources) Hyperlipidemia; Translations: [Hyperlipidemia, unspecified] Onset: 06-08-2005 06-08-2005 Chronic Essential hypertension (2 sources) Benign essential hypertension; Translations: [Essential (primary) hypertension] Onset: 12-09-2004 12-09-2004 Chronic Other eye disorders (2 sources) Scar of cornea of left eye; Translations: [Unspecified corneal scar and opacity] Episodic Other eye disorders (1 source) Unspecified corneal scar and opacity; Translations: [Corneal scar, left eye] Onset: 03-24-2022 Episodic Other nutritional; endocrine; and metabolic disorders (2 sources) Obesity; Translations: [Obesity, unspecified] Onset: 06-08-2005 06-08-2005 Chronic Retinal detachments; defects; vascular occlusion; and retinopathy (3 sources) Nonexudative age-related macular degeneration; Translations: [Nonexudative age-related macular degeneration, bilateral, advanced atrophic with subfoveal involvement] Onset: 03-24-2022 Chronic Results Test Name Value Interpretation Reference Range Facil ity Encounters Encounter Date Encounter Type Care Provider Facility Start: 03-24-2022 End: 03-25-2022 ambulatory DIOR NEWBY Facility:[facility] Start: 03-24-2022 End: 03-24-2022 Patient encounter procedure Sulema Almaraz OD Work Phone: Ophthalmology Procedures Date Procedure Procedure Detail Performing Clinician Start: 03-18-2022 Computerized corneal topography uni/bi Johnathan Delaney MD Work Phone: Start: 06-07-2020 Ecg routine ecg w/le ast 12 lds i&r only Start: 06-07-2020 Antibody screen Plan of Treatment Date Care Activity Detail Author Start: 02-28-2024 PROSTATE CANCER SCRE ENING DISCUSSION PROSTATE CANCER SCREENING DISCUSSION [facility] Start: 03-24-2023 Hepatitis C antibody , confirmatory test DILATED RETINAL EXAM [facility] Start: 03-18-2023 Hepatitis C antibody , confirmatory test DILATED RETINAL EXAM [facility] Start: 2022 ADVANCE DIRECTIVE DISCUSSION ADVANCE DIRECTIVE DISCUSSION [facility] Start: 05-02-2021 COVID-19 VACCINE (4 - Booster for Moderna series) COVID-19 VACCINE (4 - Booster for Moderna series) [facility] Start: 04-05-2021 DEPRESSION ASSESSMENT DEPRESSION ASS ESSMENT [facility] Start: 10-09-2020 Colonoscopy COLONOSCOPY [facility] Start: 10-09-2020 COLORECTAL CANCER SCREENING COLORECTAL CANCER SCREENING [facility] Start: 03-30-2020 ANNUAL PCP TEAM DIVIDEND CLERK KWASI DISEASE VISIT ANNUAL PCP TEAM CHRONIC DISEASE VISIT [facility] Start: 02-28-2020 FECAL OCCULT BLOOD FECAL OCCULT BLOO D [facility] Start: 11-27-2019 3 comp foot exam completed DIABETIC FOOT EXAM [facility] Start: 11-24-2019 Hepatitis B surface antibody level LDL CHOLESTEROL [facility] Start: 05-30-2019 Hemoglobin A1c/Hemoglobin.total in Blood HBA1C [facility] Start: 05-06-2014 Urine microalbumin profile DTAP,TDAP ,TD (2 - Tdap) [facility] Start: 2007 SHINGRIX VACCINE (1 of 2) SHINGRIX V ACCINE (1 of 2) [facility] Start: 2002 COLOGUARD (FIT-DNA) COLOGUARD (FIT-D NA) [facility] Start: [address] COLONOGRAPHY [facility] Start: 2002 SIGMOIDOSCOPY SIGMOIDOSCOPY [facility] Start: 1975 BP CONTROLLED (<130/80) BP CONTROLLE D (<130/80) [facility] Start: 1975 HEPATITIS C SCREENING HEPATITIS C SC REENING [facility] Start: 1975 HIV SCREENING HIV SCREENING [facility] Start: 1967 Hepatitis B screening URINE AL BUMIN:CREATININE RATIO [facility] Start: 1963 PNEUMOCOCCAL (1 - PCV) PNEUMOCOCCAL (1 - PCV) [facility] Start: 1963 PNEUMOCOCCAL: 65+ (1 - PCV) PNEUMOCOCCAL: 65+ (1 - PCV) [facility] Start: 1957 ABDOMINAL AORTIC ANE URYSM SCREENING ABDOMINAL AORTIC ANEURYSM SCREENING [facility] Immunizations Immunization Date Immunization Notes Care Provider Fa cility 05-06-2004 diphtheria and tetan us toxoids, adsorbed for pediatric use Johnathan Delaney MD Work Phone: [facility] Work Phone: Payers Date Payer Category Payer Medicare MEDICARE MEDICAR E A AND B [id number] 2022-Present [phone] [place] [address] Medicare [id number] 2022 Medicare [id number] Social History Date Type Detail Facility Start: 03-18-2022 Tobacco smoking stat us NHIS Ex-smoker [facility] End: 07-04-2001 History of tobacco use Current smoker [facility] End: 07-04-2001 History of tobacco use Cigarette Smoker [facility] Start: 03-18-2022 Tobacco use and exposure Smoke less tobacco non-user [facility] Start: 03-18-2022 End: 03-24-2022 Alcohol intake Current drinker of alcohol (finding) [facility] Start: 1955 Sex Assigned At Not on file [facility] Progress note 03-24-2022 Note Date & Type Note Facility 03-24-2022 Note HNO ID: [id number] Author: Sulema Almaraz, ISABELA Service: ? Author Type: ECOLOGIST Type: Progress Notes Filed: 03/24/2022 4:00 PM Note Text: (H17.9) Corneal scar, left eye (primary encounter diagnosis) (E11.9) Type 2 diabetes mellitus without retinopathy (HCC) (H35.3134) Advanced atrophic nonexudative age-related macular degeneration of both eyes with subfoveal involvement (Z96.1) Pseudophakia (H25.812) Combined forms of age-related cataract of left eye Very minimal improvement in vision with GP contact lens (20/400 was best vision compared to CF@3ft without lens) Educated patient that macular degeneration is main culprit for vision loss and that neither a contact lens nor corneal surgery to improve scar would yield much of a difference in his vision -patient admitted understanding Recommended follow-up with Dr. Billingsley for routine and AMD care Sulema Almaraz, OD March 24, 2022 3:54 PM [facility] History of Present illness Narrative 03-24-2022 Sulema Almaraz, OD - 03/24/2022 3:54 PM EST Note Date & Type Note Facility 03-24-2022 History of Presen t illness Narrative (H17.9) Corneal scar, left eye (primary encounter diagnosis) (E11.9) Type 2 diabetes mellitus without retinopathy (HCC) (H35.3134) Advanced atrophic nonexudative age-related macular degeneration of both eyes with subfoveal involvement (Z96.1) Pseudophakia (H25.812) Combined forms of age-related cataract of left eye Very minimal improvement in vision with GP contact lens (20/400 was best vision compared to CF@3ft without lens) Educated patient that macular degeneration is main culprit for vision loss and that neither a contact lens nor corneal surgery to improve scar would yield much of a difference in his vision -patient admitted understanding Recommended follow-up with Dr. Billingsley for routine and AMD care Sulema Almaraz, OD March 24, 2022 3:54 PM documented in this encounter [facility] Progress note 03-18-2022 Note Date & Type Note Facility 03-18-2022 Note HNO ID: [id number] Author: Johnathan Delaney MD Service: ? Author Type: Physician Type: Progress Notes Filed: 03/18/2022 5:14 PM Note Text: Assessment and Plan 1. 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 Type 2 diabetes mellitus without retinopathy (HCC) -no diabetic retinopathy both eyes 3. Pseudophakia right eye -looks good 4. Combined forms of age-related cataract of left eye -of mild visual significance 5. Advanced atrophic nonexudative age-related macular degeneration both eyes with subfoveal involvement -main limiting factor in vision Plan: -Continue blood sugar and blood pressure control -Check Amsler grid daily and return to clinic as soon as possible if notice any changes (eg. wavy or broken lines) -AREDs vitamins supplementation -Smoking cessation -Will send for Rigid gas permeable lens trial left eye (with dilation) -if vision improves with Rigid gas permeable lens, to consider dispensing vs penetrating keratoplasty (PK) triple left eye -if vision does not improve, back to Dr. Billingsley for Routine and Age related macular degeneration care I have confirmed and edited as necessary the relevant ophthalmic history, ROS, and the neuro exam findings as obtained by others. I have seen and examined Chip Spears. I have discussed the case and the management of this patient's care with the Resident/Fellow, if applicable. I also have reviewed and agree with the assessment and plan as stated above and agree with all of its relevant components. Johnathan Delaney MD March 18, 2022 4:16 PM [facility] History of Present illness Narrative 03-18-2022 Johnathan Delaney MD - 03/18/2022 4:16 PM EST Note Date & Type Note Facility 03-18-2022 History of Presen t illness Narrative Assessment and Plan 1. 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 Type 2 diabetes mellitus without retinopathy (HCC) -no diabetic retinopathy both eyes 3. Pseudophakia right eye -looks good 4. Combined forms of age-related cataract of left eye -of mild visual significance 5. Advanced atrophic nonexudative age-related macular degeneration both eyes with subfoveal involvement -main limiting factor in vision Plan: -Continue blood sugar and blood pressure control -Check Amsler grid daily and return to clinic as soon as possible if notice any changes (eg. wavy or broken lines) -AREDs vitamins supplementation -Smoking cessation -Will send for Rigid gas permeable lens trial left eye (with dilation) -if vision improves with Rigid gas permeable lens, to consider dispensing vs penetrating keratoplasty (PK) triple left eye -if vision does not improve, back to Dr. Billingsley for Routine and Age related macular degeneration care I have confirmed and edited as necessary the relevant ophthalmic history, ROS, and the neuro exam findings as obtained by others. I have seen and examined Chip Spears. I have discussed the case and the management of this patient's care with the Resident/Fellow, if applicable. I also have reviewed and agree with the assessment and plan as stated above and agree with all of its relevant components. Johnathan Delaney MD March 18, 2022 4:16 PM documented in this encounter [facility] Discharge summary note 06-08-2020 Note Date & Type Note Facility 06-08-2020 Note [facility] [place] [facility] note Note Date & Type Note Facility documented in this encounter [facility] Evaluation note Note Date & Type Note Facility documented in this encounter [facility] Summary Purpose Family History No Family History Records FoundNo Family History Records FoundNo Family History Records FoundNo Family History Records Found Advance Directives No Advanced Directives Records FoundNo Advanced Directives Records FoundNo Advanced Directives Records FoundNo Advanced Directives Records Found Additional Source Comments (unrecognized sect ion and content) No Status Records FoundNo Status Records FoundNo Status Records FoundNo Status Records Found INFORMATION SOURCE (unrecogn ized section and content) DATE CREATED AUTHOR AUTHOR'S ORGANIZ ATION 07/01/2020 [facility] DATE CREATED AUTHOR AUTHOR'S ORGANIZ ATION [facility] DATE CREATED AUTHOR AUTHOR'S ORGANIZ ATION 03/28/2022 [facility] Source Comments (unrecognize d section and content) In the event this informatio n is protected by the Federal Confidentiality of Alcohol and Drug Abuse Patient Records regulations: The Federal rules restrict any use of the information to criminally investigate or prosecute any alcohol or drug abuse patient.[facility] the event this information is protected by the Federal Confidentiality of Alcohol and Drug Abuse Patient Records regulations: The Federal rules restrict any use of the information to criminally investigate or prosecute any alcohol or drug abuse patient.[facility] Reason for Visit (unrecogniz ed section and content) Reason Comments Contact lens evaluation Care Teams (unrecognized sec tion and content) FOR RECORDS PERTAINING TO PATIENTS WHO ARE OR HAVE BEEN ENROLLED IN A CHEMICAL DEPENDENCY/SUBSTANCEABUSE PROGRAM, SOME INFORMATION MAY BE OMITTED. This clinical summary was aggregated from multiple sources. Caution should be exercised in using it in the provision of clinical care. This summary normalizes information from multiple sources, and as a consequence, information in this document may materially change the coding, format and clinical context of patient data. In addition, data may be omitted in some cases. CLINICAL DECISIONS SHOULD BE BASED ON THE PRIMARY CLINICAL RECORDS. [facility] provides no warranty or guarantee of the accuracy or completeness of information in this document.
== END | disposition home or self-care (01) ==
LOC: CVS 09:59
PROVIDERS: PCP Internal Medicine; Referring Provider Surgery Vascular Surgery; Visit Provider Surgery Vascular Surgery
DX: I65.23 Occlusion and stenosis of bilateral carotid arteries (principal); I63.9 Cerebral infarction, unspecified; I10 Essential (primary) hypertension
CPT/HCPCS: 93880

== ENCOUNTER → 2023-09-15 | Outpatient (CLI) | payer MEDICARE, SELFPAY ==
[2023-09-15 15:59] LABS: Absolute Lymphocyte Count 1.87 X10^3/uL (0.83-4.51); Absolute Neutrophil Count 5.8 X10^3/uL (2.0-7.7); Basophil# 0.06 X10^3/uL; Basophil% 0.7 % (0-1); Eosinophil# 0.11 X10^3/uL; Eosinophils% 1.3 % (0-5); Hematocrit 43.1 % (40-54); Hemoglobin 14.4 g/dL (13.0-16.5); Lymphocyte # 1.87 X10^3/ul (0.83-4.51); Lymphocyte % 22.1 % (19-41); Mean Corp Hgb Conc 33.4 g/dL (32-36); Mean Corpuscular Hgb 28.4 pg (27.0-32.0); Mean Platelet Vol. 10.5 fl (6.2-12.0); Monocyte# 0.62 X10^3/uL; Monocyte% 7.3 % (0-10); NRBC Flagged by Analyzer 0 % (0-5); Neutrophil # 5.76 X10^3/uL (2.7-7.7); Platelet Count 220 K/mm3 (150-450); RBC Distribution Width CV 13.1 % (11.6-14.6); RBC Distribution Width SD 40.2 fl (35.1-43.9); Red Blood Count 5.07 M/mm3 (4.6-6.2); White Blood Count 8.5 K/mm3 (4.4-11.0)
[2023-09-15 16:48] LABS: ALB/GLOB Ratio 1.1 RATIO (0.9-2.4); AST(SGOT) 21 U/L (15-37); Alanine Aminotransfer ALT/SGPT 28 U/L (16-61); Albumin, Serum 3.9 g/dL (3.2-5.0); Alkaline Phosphatase 79 U/L (45-117); Anion Gap 8 (5-15); BUN 20 mg/dL (7-18); BUN/Creat Ratio 18.9 RATIO (10-20); Calcium,Total 9.3 mg/dL (8.5-10.1); Chloride 102 mmol/L (98-107); Cholesterol 228 mg/dL (200); Creatinine, Serum 1.06 mg/dL (0.70-1.30); EST Glomerular Filtration Rate 74 mL/min (>60); Est Glom Filt Rate - Afr Amer 90 mL/min (>60); Globulin 3.6 g/dL (2.2-4.2); Glucose 218 mg/dL (74-106); High Density Lipoprotein 35 mg/dL; Potassium 4.2 mmol/L (3.5-5.1); Protein, Total 7.5 g/dL (6.4-8.2); Sodium Level 136 mmol/L (136-145); Triglycerides 541 mg/dL
[2023-09-16 10:55] LABS: PSA,Total - Annual Screen 0.93 ng/mL (0.00-4.00)
== END | disposition home or self-care (01) ==
LOC: BIMLAB 14:30
PROVIDERS: PCP Internal Medicine; Visit Provider Internal Medicine
DX: Z12.5 Encounter for screening for malignant neoplasm of prostate (principal); E78.5 Hyperlipidemia, unspecified
CPT/HCPCS: 36415; 80053; 80061; 84153; 85025; G0103

== ENCOUNTER → 2024-04-24 | Outpatient (CLI) | payer MEDICARE, SELFPAY ==
[2024-04-24 17:16] LABS: ALB/GLOB Ratio 1.1 RATIO (0.9-2.4); AST(SGOT) 20 U/L (15-37); Alanine Aminotransfer ALT/SGPT 24 U/L (16-61); Albumin, Serum 4.2 g/dL (3.2-5.0); Alkaline Phosphatase 53 U/L (45-117); Anion Gap 6 (5-15); BUN 22 mg/dL (7-18); BUN/Creat Ratio 19.1 RATIO (10-20); Calcium,Total 9.7 mg/dL (8.5-10.1); Chloride 104 mmol/L (98-107); Cholesterol 125 mg/dL (200); Creatinine, Serum 1.15 mg/dL (0.70-1.30); EST Glomerular Filtration Rate 67 mL/min (>60); Est Glom Filt Rate - Afr Amer 82 mL/min (>60); Globulin 3.8 g/dL (2.2-4.2); Glucose 133 mg/dL (74-106); High Density Lipoprotein 48 mg/dL; Potassium 4.1 mmol/L (3.5-5.1); Sodium Level 137 mmol/L (136-145); Triglycerides 154 mg/dL; Very Low Density Lipoprotein 31 mg/dL (5-40)
[2024-04-24 21:50] LABS: Microalbumin,Random Urine 72.3 mg/L (NO RANGE EST.); Microalbumin:Creatinine Ratio 63.4 mg/g CRE (<30 mg/g CRE)
== END | disposition home or self-care (01) ==
LOC: BIMLAB 14:06
PROVIDERS: PCP Internal Medicine; Referring Provider Internal Medicine; Visit Provider Internal Medicine
DX: E11.29 Type 2 diabetes mellitus with other diabetic kidney complication (principal); R80.9 Proteinuria, unspecified; E78.00 Pure hypercholesterolemia, unspecified
CPT/HCPCS: 36415; 80053; 80061; 82043; 82570

== ENCOUNTER → 2024-07-13 | Outpatient (CLI) | payer MEDICARE, SELFPAY ==
--- NOTE | 2024-07-13 12:50 | CDU_ITS ---
Reason For Study Reason For Study: Carotid Stenosis Rt. Velocities/BP Lt. Velocities/BP Prox CCA 51.3/10.7 cm/sec. Prox CCA 52.2/12.6 cm/sec. Mid CCA 70.2/20.1 cm/sec. Mid CCA 67.4/18.2 cm/sec. Dist CCA 57.0/20.1 cm/sec. Dist CCA 64.5/22.0 cm/sec. Prox ICA 70.4/24.9 cm/sec. Prox ICA 47.8/16.6 cm/sec. Mid ICA 75.3/32.3 cm/sec. Mid ICA 49.8/18.6 cm/sec. Dist ICA 44.4/17.1 cm/sec. Dist ICA 61.1/18.2 cm/sec. Rt. ICA/CCA = 1.1. Lt. ICA/CCA = 0.9. Prox ECA 101.0/7.9 cm/sec. Prox ECA 161.3/15.2 cm/sec. Rt. Vert. 35.2/12.6 cm/sec. Lt. Vert. 27.6/9.2 cm/sec. Right Extracranial There is heterogeneous, irregular atherosclerotic plaque noted in the right common carotid artery. There is heterogeneous, irregular atherosclerotic plaque noted in the right internal carotid artery. There is intimal thickening but no significant atherosclerotic plaque noted in the right external carotid artery. Antegrade flow is noted in the right vertebral artery. Left Extracranial There is heterogeneous, irregular atherosclerotic plaque noted in the left common carotid artery. There is heterogeneous, irregular atherosclerotic plaque noted in the left internal carotid artery. There is heterogeneous, irregular atherosclerotic plaque noted in the left external carotid artery. Antegrade flow is noted in the left vertebral artery. Procedure Carotid Duplex [id number]. This is a Carotid Duplex examination using B-mode, color flow and specral Doppler. Exam performed in department. VL/Carotid Duplex Ultrasound Interpretation Summary Mild (<50%) stenosis right extracranial internal carotid. Mild (<50%) stenosis left extracranial internal carotid. Patent and antegrade vertebrals bilaterally. Ordering Physician: Slava Rodriguez Referring Physician: Rigo Bergman Performed By: Yi Gerardo RVT
== END | disposition home or self-care (01) ==
LOC: CVS 12:49
PROVIDERS: PCP Internal Medicine; Referring Provider Surgery Vascular Surgery; Visit Provider Surgery Vascular Surgery
DX: I65.23 Occlusion and stenosis of bilateral carotid arteries (principal); I10 Essential (primary) hypertension; Z86.73 Personal history of transient ischemic attack (TIA), and cerebral infarction without residual deficits
CPT/HCPCS: 93880

== ENCOUNTER → 2024-08-02 | Outpatient (CLI) | payer MEDICARE, SELFPAY ==
[2024-08-02 12:47] LABS: Erythrocyte Sedimentation Rate 6 mm/hr (0-20)
[2024-08-02 13:03] LABS: Absolute Neutrophil Count 6.9 X10^3/uL (2.0-7.7); Basophil# 0.05 X10^3/uL; Basophil% 0.5 % (0-1); Eosinophil# 0.68 X10^3/uL; Eosinophils% 6.2 % (0-5); Hematocrit 40.4 % (40-54); Hemoglobin 13.4 g/dL (13.0-16.5); Lymphocyte % 21.9 % (19-41); Mean Corp Hgb Conc 33.2 g/dL (32-36); Mean Corpuscular Hgb 28.5 pg (27.0-32.0); Mean Corpuscular Volume 85.8 fL (80-94); Mean Platelet Vol. 10.6 fl (6.2-12.0); Monocyte# 0.91 X10^3/uL; Monocyte% 8.3 % (0-10); NRBC Flagged by Analyzer 0 % (0-5); Neutrophil # 6.89 X10^3/uL (2.7-7.7); Neutrophil % 62.8 % (47-70); Platelet Count 210 K/mm3 (150-450); RBC Distribution Width CV 13.1 % (11.6-14.6); RBC Distribution Width SD 41.1 fl (35.1-43.9); Red Blood Count 4.71 M/mm3 (4.6-6.2)
[2024-08-02 13:40] LABS: ALB/GLOB Ratio 1.5 RATIO (0.9-2.4); AST(SGOT) 22 U/L (<=37); Alanine Aminotransfer ALT/SGPT 16 U/L (<=46); Albumin, Serum 4.5 g/dL (3.4-4.8); Alkaline Phosphatase 53 U/L (40-129); Anion Gap 13 (5-15); BUN 34 mg/dL (4-19); BUN/Creat Ratio 23.3 RATIO (10-20); Calcium,Total 10.1 mg/dL (7.6-11.0); Carbon Dioxide 23.7 mmol/L (21.0-32.0); Chloride 103 mmol/L (98-108); Creatinine, Serum 1.47 mg/dL (0.70-1.20); EST Glomerular Filtration Rate 52 (>60); Glucose 206 mg/dL (70-99); Potassium 4.5 mmol/L (3.3-5.1); Protein, Total 7.5 g/dL (5.9-8.4); Sodium Level 140 mmol/L (133-145); Total Bilirubin 0.37 mg/dL (0.00-1.30)
[2024-08-02 13:41] LABS: CRP < 3.00 mg/L (0.0-3.0)
== END | disposition home or self-care (01) ==
LOC: BIMLAB 09:43
PROVIDERS: PCP Internal Medicine; Referring Provider Internal Medicine; Visit Provider Internal Medicine
DX: I10 Essential (primary) hypertension (principal); E11.29 Type 2 diabetes mellitus with other diabetic kidney complication; R80.9 Proteinuria, unspecified
CPT/HCPCS: 36415; 80053; 85025; 85652; 86140

== ENCOUNTER → 2024-11-01 | Outpatient (CLI) | payer MEDICARE, SELFPAY ==
[2024-11-01 13:21] LABS: Anion Gap 12 (5-15); BUN 33 mg/dL (4-19); BUN/Creat Ratio 22.5 RATIO (10-20); Calcium,Total 9.8 mg/dL (7.6-11.0); Carbon Dioxide 25.5 mmol/L (21.0-32.0); Chloride 104 mmol/L (98-108); Glucose 215 mg/dL (70-99); Potassium 5.1 mmol/L (3.3-5.1)
== END | disposition home or self-care (01) ==
LOC: BIMLAB 10:26
PROVIDERS: PCP Internal Medicine; Visit Provider Internal Medicine
DX: I10 Essential (primary) hypertension (principal)
CPT/HCPCS: 36415; 80048